=== PATIENT | female | born 1965 ===

== ENCOUNTER 2016-09-01 15:52 | Emergency (ER) | payer MEDICAID ==
[2016-09-01 16:03] VITALS: BMI 38.9
--- NOTE | 2016-09-01 16:41 | ED PDOC ---
Hyperglycemia/Hypoglycemia Time Seen by Provider: 09/01/16 15:57 Chief Complaint (Nursing): High Blood Sugar Chief Complaint (Provider): Hyperglycemia, Dizziness History Per: Patient History/Exam Limitations: other (confusion) Onset/Duration Of Symptoms: Days (2 days ago) Current Symptoms Are (Timing): Still Present Severity: Moderate Current Diabetic Medications: Insulin Causative (Exacerbating) Factor(s): Missed Taking Medication Associated Infectious Symptoms: Other (altered mental status, confusion) : The patient does not have any of the infectious symptoms listed except for those marked. Treatment Prior To Provider Evaluation: Other (10 units of humalog) Response To Treatment: Good Response Additional History Per: EMS Additional Complaint(s): Samira Dao is a 50 year old female, with a past medical history of type I diabetes mellitus and hypertension, who presents to the emergency department via [facility] medics transport for the evaluation of hyperglycemia, inclusive of dizziness, that the patient has been experiencing for the past 2 days. [facility] reportedly gave the patient 10 units of Humalog since she had missed her Insulin medication for 2 days. Patient is in a state of confusion and appears mildly altered. HPI/ROS are limited due to patient's state of confusion. PMD: Ivana Valverde Past Medical History Reviewed: Historical Data, Nursing Documentation, Vital Signs Vital Signs: Last Vital Signs Temp 98.2 F 09/01/16 16:25 Pulse 73 09/01/16 16:25 Resp 18 09/01/16 16:25 BP 176/91 H 09/01/16 16:25 Pulse Ox 99 09/01/16 16:25 - Medical History PMH: Arthritis, CVA, Diabetes (type I), HTN - Surgical History Surgical History: (x4) Other surgeries: Tubal Ligation (11 years ago) - Family History Family History: States: No Known Family Hx - Social History Alcohol: None Drugs: Denies - Home Medications Home Medications: Ambulatory Orders Medication Instructions Recorded Aspirin/Dipyridamole [Aggrenox 25 1 tab PO BID 03/27/14 mg-200 mg] Ergocalciferol (Vitamin D2) 50,000 unit PO QWK 03/27/14 [Vitamin D] Hydroxychloroquine Sulfate 200 mg PO BID 03/27/14 [Plaquenil] Insulin Glargine, Recombinan 40 unit SC HS 03/27/14 [Lantus] Insulin Lispro, Recombinant 10 unit SC TID 03/27/14 [Humalog] Lisinopril/Hydrochlorothiazide 1 tab PO DAILY 03/27/14 [Lisinopril-Hydrochlorothiazide 25 mg-20 mg] Meloxicam [Mobic] 15 mg PO DAILY 03/27/14 Oxybutynin XL [Ditropan XL] 10 mg PO DAILY 03/27/14 Pravastatin Sodium [Pravachol] 20 mg PO DAILY 03/27/14 amLODIPine [Norvasc] 10 mg PO DAILY 03/27/14 Acetaminophen [Tylenol] 650 mg PO Q4 #30 tab 09/14/14 Bacitracin OINT 1 applic TP DAILY #1 tube 04/13/16 Ibuprofen [Motrin Tab] 600 mg PO Q6 #30 tab 04/13/16 - Allergies Allergies/Adverse Reactions: Allergies Allergy/AdvReac Type Severity Reaction Status Date / Time No Known Allergies Allergy Unverified 01/28/14 17:46 Review of Systems Review Of Systems: ROS cannot be obtained secondary to pt's inabilty to answer questions. (ROS is limited due to patient's altered state of confusion) Neurological: Positive for: Confusion, Altered Mental Status, Dizziness Physical Exam - Reviewed Nursing Documentation Reviewed: Yes Vital Signs Reviewed: Yes - Physical Exam Appears: Positive for: No Acute Distress (mildly dehydrated appearing, smells of urine) Head Exam: Positive for: ATRAUMATIC, NORMOCEPHALIC Skin: Positive for: Normal Color, Warm, Dry Eye Exam: Positive for: Normal appearance, EOMI, PERRL Cardiovascular/Chest: Positive for: Regular Rate, Rhythm. Negative for: Murmur Respiratory: Positive for: Normal Breath Sounds. Negative for: Respiratory Distress Gastrointestinal/Abdominal: Positive for: Normal Exam, Soft. Negative for: Tenderness Back: Positive for: Normal Inspection. Negative for: L CVA Tenderness, R CVA Tenderness Extremity: Positive for: Normal ROM, Other (5/5 equal strength b/l). Negative for: Tenderness Neurologic/Psych: Positive for: Alert, Oriented (x2 to person and place). Negative for: Facial Droop - Laboratory Results Result Diagrams: 09/01/16 16:50 09/01/16 16:50 - ECG ECG Rhythm: Positive for: Sinus Rhythm. Negative for: ST/T Changes, Nonspecific Changes Rate: 68 O2 Sat by Pulse Oximetry: 99 (RA) Pulse Ox Interpretation: Normal Medical Decision Making Medical Decision Makin:57 Initial Impression: Hyperglycemia, altered mental status Initial Plan: * CT Head w/o Contrast * EKG * Alcohol Serum * CBC * CMP * Troponin I * Total Creatinine Kinase * Urine Drug Screen * Urinalysis * Glucose, Blood, POC * Reevaluation 16:35 EKG read a rate of 68 with Normal Sinus Rhythm and Non-Specific ST/T Changes. chem reviewed mild hyperglycemia pending UA Scribe Attestation: Documented by Robert Braun, acting as a scribe for Prieto Goode III, MD. Provider Scribe Attestation: All medical record entries made by the Scribe were at my direction and personally dictated by me. I have reviewed the chart and agree that the record accurately reflects my personal performance of the history, physical exam, medical decision making, and the department course for this patient. I have also personally directed, reviewed, and agree with the discharge instructions and disposition. Disposition - Clinical Impression Clinical Impression: Hyperglycemia - Patient ED Disposition Is Patient to be Admitted: Transfer of Care - Disposition Referrals: Ivana Valverde MD [Family Provider] - Disposition: Transfer of Care Disposition Time: 19:00 Condition: FAIR Patient Signed Over To: Harinder Evans Handoff Comments: pending UA and dispo
--- NOTE | 2016-09-01 16:49 | ED PDOC ---
Hyperglycemia/Hypoglycemia Time Seen by Provider: 09/01/16 15:57 Chief Complaint (Nursing): High Blood Sugar : The patient does not have any of the infectious symptoms listed except for those marked. Past Medical History Vital Signs: Last Vital Signs Temp 98.2 F 09/01/16 16:25 Pulse 73 09/01/16 16:25 Resp 18 09/01/16 16:25 BP 176/91 H 09/01/16 16:25 Pulse Ox 99 09/01/16 16:25 - Medical History PMH: Arthritis, Diabetes, HTN - Surgical History Surgical History: (x 4) - Family History Family History: States: Unknown Family Hx - Home Medications Home Medications: Ambulatory Orders Medication Instructions Recorded Aspirin/Dipyridamole [Aggrenox 25 1 tab PO BID 03/27/14 mg-200 mg] Ergocalciferol (Vitamin D2) 50,000 unit PO QWK 03/27/14 [Vitamin D] Hydroxychloroquine Sulfate 200 mg PO BID 03/27/14 [Plaquenil] Insulin Glargine, Recombinan 40 unit SC HS 03/27/14 [Lantus] Insulin Lispro, Recombinant 10 unit SC TID 03/27/14 [Humalog] Lisinopril/Hydrochlorothiazide 1 tab PO DAILY 03/27/14 [Lisinopril-Hydrochlorothiazide 25 mg-20 mg] Meloxicam [Mobic] 15 mg PO DAILY 03/27/14 Oxybutynin XL [Ditropan XL] 10 mg PO DAILY 03/27/14 Pravastatin Sodium [Pravachol] 20 mg PO DAILY 03/27/14 amLODIPine [Norvasc] 10 mg PO DAILY 03/27/14 Acetaminophen [Tylenol] 650 mg PO Q4 #30 tab 09/14/14 Bacitracin OINT 1 applic TP DAILY #1 tube 04/13/16 Ibuprofen [Motrin Tab] 600 mg PO Q6 #30 tab 04/13/16 - Allergies Allergies/Adverse Reactions: Allergies Allergy/AdvReac Type Severity Reaction Status Date / Time No Known Allergies Allergy Unverified 01/28/14 17:46 - ECG O2 Sat by Pulse Oximetry: 99 Disposition - Disposition Referrals: Ivana Valverde MD [Primary Care Provider] -
[2016-09-01 16:57] LABS: BASO # 0.1 K/uL (0.0-0.2); BASO % 1.2 % (0.0-2.0); EOS # 0.4 K/uL (0.0-0.7); EOS % 3.9 % (0.0-4.0); HEMATOCRIT 41.3 % (34.0-47.0); LYMPH # 3.5 K/uL (1.0-4.3); LYMPH % 31.4 % (20.0-40.0); MEAN CELL VOLUME 85.4 fl (81.0-99.0); MEAN CORPUSCULAR HGB CONC 32.8 g/dL (33.0-37.0); MEAN PLATELET VOLUME 10.1 fl (7.2-11.7); MONO # 0.6 K/uL (0.0-0.8); MONO % 5.5 % (0.0-10.0); NEUT # 6.5 K/uL (1.8-7.0); RED CELL DISTRIBUTION WIDTH 14.4 % (11.5-14.5); WHITE BLOOD COUNT 11.2 K/uL (4.8-10.8)
[2016-09-01 17:15] VITALS: BP 176/91; PULSE 68; RESP 18; TEMP 98.2; O2SAT 99
[2016-09-01 17:16] LABS: ALCOHOL SERUM < 10 mg/dl (0-10); ALKALINE PHOSPHATASE 105 U/L (38-126); ALT/SGPT 19 U/L (9-52); AST/SGOT 18 U/L (14-36); BILIRUBIN,TOTAL 0.3 mg/dl (0.2-1.3); BLOOD UREA NITROGEN 37 mg/dl (7-17); CARBON DIOXIDE 28 mmol/L (22-30); CHLORIDE 95 mmol/L (98-107); GFR AFRICAN-AMERICAN 49; GLUCOSE,RANDOM 262 mg/dL (65-105); POTASSIUM 3.6 MMOL/L (3.6-5.0); SODIUM 136 mmol/l (132-148); TOTAL PROTEIN 8.7 G/DL (6.3-8.2)
[2016-09-01] MEDS ORDERED: Sodium Chloride 0.9% 1,000 ML IV STA (18:06)
--- NOTE | 2016-09-01 18:12 | CT ---
PROCEDURE: CT HEAD WITHOUT CONTRAST. HISTORY: AMS COMPARISON: 04/12/2016 TECHNIQUE: Axial computed tomography images were obtained through the head/brain without intravenous contrast. Radiation dose: Total exam DLP = mGy-cm. This CT exam was performed using one or more of the following dose reduction techniques: Automated exposure control, adjustment of the mA and/or kV according to patient size, and/or use of iterative reconstruction technique. FINDINGS: HEMORRHAGE: No intracranial hemorrhage. BRAIN: No mass effect or edema. No significant change in multifocal chronic infarcts. VENTRICLES: Unremarkable. No hydrocephalus. CALVARIUM: Unremarkable. PARANASAL SINUSES: Unremarkable as visualized. No significant inflammatory changes. MASTOID AIR CELLS: Unremarkable as visualized. No inflammatory changes. OTHER FINDINGS: None. IMPRESSION: No acute hemorrhage.
--- NOTE | 2016-09-01 20:16 | ED PDOC ---
- Laboratory Results Result Diagrams: 09/01/16 16:50 09/01/16 16:50 - ECG O2 Sat by Pulse Oximetry: 99 (RA) Pulse Ox Interpretation: Normal Medical Decision Making Medical Decision Makin:00 Patient transferred over to provider from Dr. Goode. Pending labs and reevaluation. 21:15 Repeat accucheck is 192. Urine Dip is normal with an exception of glycosuria. 21:20 Upon provider reevaluation, patient's condition has improved, is medically stable, and requires no further treatment in the emergency department at this time. Patient will be discharged home without need for a prescription. Counseling was provided and all questions were answered regarding diagnosis and need for follow up with Ivana Valverde MD in 1-2 days. Patient is in agreement with provider's discharge plan and was prompted to return if their symptoms persist or worsen. Clinical Impression: Hyperglycemia Scribe Attestation: Documented by Robert Braun, acting as a scribe for Harinder Evans MD. Provider Scribe Attestation: All medical record entries made by the Scribe were at my direction and personally dictated by me. I have reviewed the chart and agree that the record accurately reflects my personal performance of the history, physical exam, medical decision making, and the department course for this patient. I have also personally directed, reviewed, and agree with the discharge instructions and disposition. Disposition - Clinical Impression Clinical Impression: Hyperglycemia - POA Present On Arrival: None - Disposition Referrals: Ivana Valverde MD [Family Provider] - Disposition: Routine/Home Disposition Time: 21:20 Condition: IMPROVED Instructions: Diabetic Hyperglycemia (ED)
[2016-09-02 01:41] LABS: RBC URINE 3 /hpf (0-3); URINE BACTERIA MOD (<OCC); URINE BILIRUBIN NEGATIVE (NEGATIVE); URINE BLOOD NEGATIVE (NEGATIVE); URINE COLOR YELLOW (YELLOW); URINE GLUCOSE (UA) >=500 mg/dL (Normal); URINE KETONE NEGATIVE (NEGATIVE); URINE LEUKOCYTE ESTERASE SMALL Leu/uL (Negative); URINE PROTEIN 100 mg/dL (NEGATIVE); URINE UROBILINOGEN 0.2-1.0 mg/dL (0.2-1.0); WBC URINE 19 /hpf (0-5)
--- NOTE | 2016-09-02 13:28 | CARD ---
APPROVED REPORT EKG Measurement Heart [id number] <Conclusion> Normal sinus rhythm Minimal voltage criteria for LVH, may be normal variant Borderline ECG
== END 2016-09-01 21:11 | disposition home or self-care (01) ==
LOC: H.ER 15:52
DX: E11.65 Type 2 diabetes mellitus with hyperglycemia (principal); R41.82 Altered mental status, unspecified; I10 Essential (primary) hypertension; Z79.4 Long term (current) use of insulin; Z79.82 Long term (current) use of aspirin; Z86.73 Personal history of transient ischemic attack (TIA), and cerebral infarction without residual deficits

== ENCOUNTER 2016-10-04 12:34 | Inpatient (IN) | payer MEDICAID ==
[2016-10-04 12:34] VITALS: BMI 38.9
[2016-10-04] MEDS ORDERED: Sodium Chloride 0.9% 1,000 ML IV STA ×2 (13:49→14:56)
[2016-10-04] MEDS ORDERED: Insulin Regular 100 units/ml IVP STA (13:50)
[2016-10-04 14:21] LABS: BASO # 0.1 K/uL (0.0-0.2); BASO % 1.1 % (0.0-2.0); EOS # 0.4 K/uL (0.0-0.7); EOS % 3.7 % (0.0-4.0); LYMPH # 2.2 K/uL (1.0-4.3); LYMPH % 23.1 % (20.0-40.0); MEAN CELL VOLUME 86.1 fl (81.0-99.0); MEAN CORPUSCULAR HGB CONC 32.5 g/dL (33.0-37.0); MONO # 0.6 K/uL (0.0-0.8); MONO % 6.2 % (0.0-10.0); NEUT # 6.4 K/uL (1.8-7.0); NEUT % 65.9 % (50.0-75.0); NRBC % 0.1 % (0.0-0.0); RED CELL DISTRIBUTION WIDTH 14.1 % (11.5-14.5); WHITE BLOOD COUNT 9.7 K/uL (4.8-10.8)
--- NOTE | 2016-10-04 14:29 | ED PDOC ---
Syncope/Near Syncope/Dizziness Time Seen by Provider: 10/04/16 13:30 Chief Complaint (Nursing): Dizziness/Lightheaded Chief Complaint (Provider): Lightheadedness History Per: Patient History/Exam Limitations: no limitations Onset/Duration Of Symptoms: Hrs (since 12:30 pm) Current Symptoms Are (Timing): Still Present Additional Complaint(s): 50 y/o female with a past medical history of diabetes who presents to the emergency department with a complaint of feeling "lightheadedness" and fell down around 12:30 pm today, prior to arrival. Reports she takes insulin every night. Admits she did not eat today. Denies headache, head injury, pain, shortness of breath, polyuria, polydipsia, loss of consciousness, nausea, vomiting, fever, or abdominal pain, LOC, incontinence. NIHSS Stroke Scale - Date/Time Evaluation Performed Date Performed: 10/04/16 - How Severe is the Stroke Level of Consciousness: 0=Alert LOC to Questions: 0=Both comments correct LOC to commands: 0=Obeys both correctly Best Gaze: 0=Normal Visual: 0=No visual loss Facial: 0=Normal Motor Arm - Left: 0=No drift Motor Arm - Right: 0=No drift Motor Leg - Left: 0=No drift Motor Leg - Right: 0=No drift Limb Ataxia: 0=Absent Sensory: 0=Normal Best Language: 0=No aphasia Dysarthia: 0=Normal articulation Extinction & Inattention (Neglect): 0=Normal, no object Score: 0 Past Medical History Reviewed: Historical Data, Nursing Documentation, Vital Signs Vital Signs: Last Vital Signs Temp 98.9 F 10/04/16 12:35 Pulse 86 10/04/16 12:35 Resp 18 10/04/16 12:35 BP 135/76 10/04/16 12:35 Pulse Ox 96 10/04/16 12:35 - Medical History PMH: Arthritis, CVA, Diabetes (type I), HTN - Surgical History Surgical History: (x4) - Family History Family History: States: Unknown Family Hx - Home Medications Home Medications: Ambulatory Orders Medication Instructions Recorded Aspirin/Dipyridamole [Aggrenox 1 cap PO BID 10/04/16 25-200 mg] Insulin Glargine, Recombina 40 unit SC HS 10/04/16 [Lantus] Insulin Lispro [humALOG] 10 unit SC TID 10/04/16 Lisinopril/Hydrochlorothiazide 1 tab PO DAILY 10/04/16 [Lisinopril-Hctz 20-25 mg Tab] PARoxetine [Paxil] 20 mg PO QAM 10/04/16 Pravastatin Sodium [Pravachol] 20 mg PO DAILY 10/04/16 amLODIPine [Norvasc] 10 mg PO DAILY 10/04/16 metFORMIN [glucOPHAGE] 850 mg PO BID 10/04/16 - Allergies Allergies/Adverse Reactions: Allergies Allergy/AdvReac Type Severity Reaction Status Date / Time No Known Allergies Allergy Unverified 01/28/14 17:46 Review of Systems ROS Statement: Except As Marked, All Systems Reviewed And Found Negative Constitutional: Negative for: Fever, Other (loss of consciousness) Respiratory: Negative for: Shortness of Breath Gastrointestinal: Negative for: Nausea, Vomiting, Abdominal Pain Genitourinary Female: Negative for: Other (Polyuria or polydipsia) Neurological: Positive for: Other (Lightheadedness). Negative for: Headache ( NO head injury) Physical Exam - Reviewed Nursing Documentation Reviewed: Yes Vital Signs Reviewed: Yes - Physical Exam Appears: Positive for: Well, Non-toxic, No Acute Distress Head Exam: Positive for: ATRAUMATIC, NORMAL INSPECTION, NORMOCEPHALIC Skin: Positive for: Normal Color, Warm, Dry ENT: Positive for: Normal ENT Inspection. Negative for: Pharyngeal Erythema Neck: Positive for: Normal, Supple Cardiovascular/Chest: Positive for: Regular Rate, Rhythm. Negative for: Murmur Respiratory: Positive for: Normal Breath Sounds. Negative for: Accessory Muscle Use, Respiratory Distress Gastrointestinal/Abdominal: Positive for: Normal Exam, Soft. Negative for: Tenderness Extremity: Positive for: Normal ROM. Negative for: Pedal Edema Neurologic/Psych: Positive for: Alert, Oriented, Gait (steady), Other (negative Romberg sign; equal general surgeon strenght b/l). Negative for: Aphasia, Facial Droop - Laboratory Results Result Diagrams: 10/04/16 14:12 10/04/16 14:12 - ECG ECG: Positive for: Interpreted By Me ECG Rhythm: Positive for: Sinus Rhythm. Negative for: ST/T Changes O2 Sat by Pulse Oximetry: 96 (RA) Pulse Ox Interpretation: Normal - Progress ED Course And Treament: Repeat FSBS: 294. CT head w/o contrast: nothing acute Upon further questioning pt. states she has not taken her insulin in >2 weeks as she has depleted her supply of needles. Urine culture ordered. Rocephin 1gm IV given. Case d/w Dr. Newsome who states anion gap is 14 and pt. has no ketones in her urine therefore DKA is r/o. Case d/w Dr. Davey, covering for Dr. Schmitz, and arrangements made for 23 hr observation. Medical Decision Making Medical Decision Making: Time: 13:30 Initial impression: Lightheadedness Initial plan: --Head w/o contrast CT --Electrocardiogram STAT --COMP Metabolic Panel --Troponin I STAT --EKG-ED (EDNURTX) --CBC w/ differential --Insulin Human Regular 8 Units IVP --Sodium Chloride 1,000 ml IV 1,000 mls/hr --Band Saw Operator Cake Cutting CONT --IV Insertion --Urinalysis STAT --Reevaluation --AccuCheck: 421 --Case discussed with Dr. Newsome who states patient does not require COLD STROKE as there are no focal deficits. Time: 16:23 --Head CT FINDINGS: HEMORRHAGE: No intracranial hemorrhage. BRAIN: Diffuse atrophy with prominence of the ventricles and sulci noted. No mass effect or edema. Dense intracranial atherosclerotic calcifications. Moderate scattered periventricular and subcortical white matter hypodensities, which are nonspecific, but often seen with chronic microvascular ischemic disease. Encephalomalacia is re-identified within the left cerebellum and right basal ganglia similar prior study. Evidence of bilateral Ishmael lacunar infarcts which also appear grossly similar to prior study. VENTRICLES: No hydrocephalus. Ex vacuo dilatation of the frontal horn right lateral ventricle. CALVARIUM: Unremarkable. PARANASAL SINUSES: Unremarkable as visualized. No significant inflammatory changes. MASTOID AIR CELLS: Unremarkable as visualized. No inflammatory changes. OTHER FINDINGS: None. IMPRESSION: Moderate nonspecific white matter changes as above. Similar appearance of multifocal chronic infarcts. Please note that MRI with diffusion imaging is more sensitive in the detection of acute ischemic event. Scribe Attestation: Documented by Eloisa Lin, acting as a scribe for Flo Myles PA-C. Provider Scribe Attestation: All medical record entries made by the Scribe were at my direction and personally dictated by me. I have reviewed the chart and agree that the record accurately reflects my personal performance of the history, physical exam, medical decision making, and the department course for this patient. I have also personally directed, reviewed, and agree with the discharge instructions and disposition. Disposition - Clinical Impression Clinical Impression: Dizziness, Hyperglycemia - Patient ED Disposition Is Patient to be Admitted: Yes - Disposition Disposition: Routine/Home Disposition Time: 17:41 Condition: IMPROVED
[2016-10-04 14:35] LABS: ALKALINE PHOSPHATASE 102 U/L (38-126); ALT/SGPT 35 U/L (9-52); AST/SGOT 15 U/L (14-36); BILIRUBIN,TOTAL 0.3 mg/dl (0.2-1.3); BLOOD UREA NITROGEN 29 mg/dl (7-17); CALCIUM 9.4 mg/dL (8.4-10.2); CARBON DIOXIDE 26 mmol/L (22-30); CHLORIDE 94 mmol/L (98-107); GFR AFRICAN-AMERICAN 45; POTASSIUM 3.9 MMOL/L (3.6-5.0); SODIUM 134 mmol/l (132-148); TOTAL PROTEIN 8.6 G/DL (6.3-8.2)
[2016-10-04 14:36] LABS: RBC URINE 18 /hpf (0-3); URINE BACTERIA OCC (<OCC); URINE BILIRUBIN NEGATIVE (NEGATIVE); URINE BLOOD SMALL (NEGATIVE); URINE COLOR YELLOW (YELLOW); URINE GLUCOSE (UA) >=500 mg/dL (Normal); URINE KETONE NEGATIVE (NEGATIVE); URINE LEUKOCYTE ESTERASE LARGE Leu/uL (Negative); URINE PROTEIN 100 mg/dL (NEGATIVE); URINE UROBILINOGEN 0.2-1.0 mg/dL (0.2-1.0); WBC CLUMPS MANY /hpf; WBC URINE 180 /hpf (0-5)
[2016-10-04 14:53] LABS: GLUCOSE,RANDOM 486 mg/dL (65-105)
--- NOTE | 2016-10-04 16:24 | CT ---
PROCEDURE: CT HEAD WITHOUT CONTRAST. HISTORY: dizziness COMPARISON: Noncontrast head CT performed 09/01/16 TECHNIQUE: Axial computed tomography images were obtained through the head/brain without intravenous contrast. Radiation dose: Total exam DLP = 820.96 mGy-cm. This CT exam was performed using one or more of the following dose reduction techniques: Automated exposure control, adjustment of the mA and/or kV according to patient size, and/or use of iterative reconstruction technique. FINDINGS: HEMORRHAGE: No intracranial hemorrhage. BRAIN: Diffuse atrophy with prominence of the ventricles and sulci noted. No mass effect or edema. Dense intracranial atherosclerotic calcifications. Moderate scattered periventricular and subcortical white matter hypodensities, which are nonspecific, but often seen with chronic microvascular ischemic disease. Encephalomalacia is re-identified within the left cerebellum and right basal ganglia similar prior study. Evidence of bilateral Ishmael lacunar infarcts which also appear grossly similar to prior study. VENTRICLES: No hydrocephalus. Ex vacuo dilatation of the frontal horn right lateral ventricle. CALVARIUM: Unremarkable. PARANASAL SINUSES: Unremarkable as visualized. No significant inflammatory changes. MASTOID AIR CELLS: Unremarkable as visualized. No inflammatory changes. OTHER FINDINGS: None. IMPRESSION: Moderate nonspecific white matter changes as above. Similar appearance of multifocal chronic infarcts. Please note that MRI with diffusion imaging is more sensitive in the detection of acute ischemic event.
[2016-10-04] MEDS: Insulin Detemir 100 Units/ml Inj SC SCH (22:31)
[2016-10-05 07:19] LABS: MEAN CELL VOLUME 84.8 fl (81.0-99.0); MEAN CORPUSCULAR HEMOGLOBIN 28.2 pg (27.0-31.0); MEAN CORPUSCULAR HGB CONC 33.3 g/dL (33.0-37.0); RED CELL DISTRIBUTION WIDTH 13.8 % (11.5-14.5); WHITE BLOOD COUNT 9.9 K/uL (4.8-10.8)
[2016-10-05 07:20] LABS: ALB/GLOB RATIO 0.9 (1.0-2.1); BILIRUBIN,TOTAL 0.3 mg/dl (0.2-1.3); CALCIUM 8.8 mg/dL (8.4-10.2); POTASSIUM 3.5 MMOL/L (3.6-5.0); TOTAL PROTEIN 7.3 G/DL (6.3-8.2)
[2016-10-05 07:28] LABS: TROPONIN I 0.013 ng/mL (0.00-0.120)
[2016-10-05 07:46] LABS: THYROID STIMULATING HORMONE 1.95 mIU/ML (0.46-4.68)
[2016-10-05] MEDS: Aspirin-Dipyridamole 200-25 mg ER Cap PO SCH ×2 (08:46→17:10)
[2016-10-05] MEDS: Insulin Lispro (humaLOG) 100 Units/ml Inj SC SCH ×3 (08:47→17:11)
[2016-10-05] MEDS: Enoxaparin 40 mg Syringe SC SCH (08:48)
[2016-10-05] MEDS: Pravastatin Sodium 20 MG TAB PO SCH (08:49)
--- NOTE | 2016-10-05 12:01 | CP.PCM.HP ---
History of Present Illness - History of Present Illness History of Present Illness: Patient seen and examined at the bedside with attending. 50F p/w an episode of what seems to be mechanical fall. Patient describes turning quickly, becoming dizzy, reaching out to catch herself/missing the pole , and falling face forward. She denies any prodrome of palpitations or SOB, headache, or diaphoresis. She denies LOC. In the ED her glucose was found to be >400. PMD: Dr Savannah Valverde PMH: DM, Lupus, Arthritis, HTN, CVA x2 () PSH: C-sxn x4 Smoke: Quit 4yrs ago Alcohol: Denies ALL: NKDA KAY: See Med Rec Present on Admission - Present on Admission Any Indicators Present on Admission: Yes History of Uncontrolled Diabetes: Yes Review of Systems - Neurological Neurological: Dizziness Past Patient History - Infectious Disease Hx of Infectious Diseases: None - Past Medical History & Family History Past Medical History?: Yes - Past Social History Smoking Status: Never Smoked - CARDIAC Hx Cardiac Disorders: Yes Hx Hypertension: Yes - PULMONARY Hx Respiratory Disorders: No - NEUROLOGICAL Hx Neurological Disorder: Yes HX Cerebrovascular Accident: Yes () - HEENT Hx HEENT Problems: No - RENAL Hx Chronic Kidney Disease: No - ENDOCRINE/METABOLIC Hx Endocrine Disorders: Yes Hx Diabetes Mellitus Type 1: Yes - HEMATOLOGICAL/ONCOLOGICAL Hx Blood Disorders: No - INTEGUMENTARY Hx Dermatological Problems: No - MUSCULOSKELETAL/RHEUMATOLOGICAL Hx Musculoskeletal Disorders: Yes Hx Arthritis: Yes Hx Falls: No - GASTROINTESTINAL Hx Gastrointestinal Disorders: No - GENITOURINARY/GYNECOLOGICAL Hx Genitourinary Disorders: No - PSYCHIATRIC Hx Psychophysiologic Disorder: No Hx Substance Use: No - SURGICAL HISTORY Hx Surgeries: Yes Hx Section: Yes Hx Tubal Ligation: Yes (11 years ago) - ANESTHESIA Hx Anesthesia: Yes Hx Anesthesia Reactions: No Hx Malignant Hyperthermia: No Has any member of the family had a problem w/ anesthesia?: No Meds Allergies/Adverse Reactions: Allergies Allergy/AdvReac Type Severity Reaction Status Date / Time No Known Allergies Allergy Unverified 01/28/14 17:46 Physical Exam - Constitutional Appears: Well, Non-toxic, No Acute Distress - Head Exam Head Exam: ATRAUMATIC, NORMAL INSPECTION - Eye Exam Eye Exam: EOMI, PERRL - ENT Exam ENT Exam: Mucous Membranes Moist, Normal Exam - Neck Exam Neck exam: Positive for: Full Rom, Normal Inspection - Respiratory Exam Respiratory Exam: Clear to Auscultation Bilateral, NORMAL BREATHING PATTERN. absent: Rales, Wheezes - Cardiovascular Exam Cardiovascular Exam: REGULAR RHYTHM. absent: JVD - GI/Abdominal Exam GI & Abdominal Exam: Normal Bowel Sounds, Soft. absent: Tenderness - Extremities Exam Extremities exam: Positive for: normal capillary refill, pedal pulses present. Negative for: pedal edema - Neurological Exam Neurological exam: Alert, CN II-XII Intact, Oriented x3 - Psychiatric Exam Psychiatric exam: Normal Affect, Normal Mood - Skin Skin Exam: Normal Color, Warm Results - Vital Signs Recent Vital Signs: Last Vital Signs Temp 36.8 C 10/05/16 08:00 Pulse 73 10/05/16 08:49 Resp 18 10/05/16 08:00 BP 120/79 10/05/16 08:49 Pulse Ox 93 L 10/05/16 08:00 - Labs Result Diagrams: 10/06/16 07:15 10/06/16 07:15 Labs: Laboratory Results - last 24 hr 10/04/16 10/05/16 10/05/16 21:05 05:25 06:15 WBC 9.9 RBC 4.36 Hgb 12.3 Hct 37.0 MCV 84.8 MCH 28.2 MCHC 33.3 RDW 13.8 Plt Count 239 Sodium Potassium Chloride Carbon Dioxide Anion Gap BUN Creatinine Est GFR ( Amer) Est GFR (Non-Af Amer) POC Glucose (mg/dL) 226 H 204 H Random Glucose Calcium Total Bilirubin AST ALT Alkaline Phosphatase Troponin I Total Protein Albumin Globulin Albumin/Globulin Ratio Vitamin B12 TSH 3rd Generation 10/05/16 10/05/16 06:15 11:23 WBC RBC Hgb Hct MCV MCH MCHC RDW Plt Count Sodium 139 Potassium 3.5 L Chloride 102 Carbon Dioxide 27 Anion Gap 14 BUN 20 H Creatinine 1.2 Est GFR ( Amer) 58 Est GFR (Non-Af Amer) 48 POC Glucose (mg/dL) 303 H Random Glucose 192 H Calcium 8.8 Total Bilirubin 0.3 AST 14 ALT 29 Alkaline Phosphatase 83 Troponin I 0.0130 Total Protein 7.3 Albumin 3.5 Globulin 3.8 Albumin/Globulin Ratio 0.9 L Vitamin B12 393 TSH 3rd Generation 1.95 Assessment & Plan (1) Fall Assessment and Plan: Appears to be a mechanical fall, however given positive UA and hyperglycemia this may have contributed to the balance issue. CT head chronic infarcts identified but recommendation to f/u with MRI. - Neurology Consult(Dr Espinoza): MRI of brain - Start antibiotics - MRI pending Status: Acute (2) DVT prophylaxis Assessment and Plan: Lovenox 40mg, SC, Daily Status: Acute (3) UTI (urinary tract infection) Assessment and Plan: - Started PO Macrobid Status: Acute (4) History of CVA (cerebrovascular accident) without residual deficits Assessment and Plan: No residual symptoms. - c/w Aggrenox Q12H Status: Chronic (5) Lupus Assessment and Plan: Chronic, and not on medication. Work-up was elsewhere - Send labs Status: Chronic (6) Hypertension Assessment and Plan: Stable, c/w home medications Status: Acute (7) Diabetes Assessment and Plan: Poorly controlled - Accu-checks ACHS - c/w home medications - Statin - Hypoglycemic Bundle - SSI - Levemir Status: Chronic
--- NOTE | 2016-10-05 15:55 | CP.PCM.CON ---
History of Present Illness - History of Present Illness History of Present Illness: Ms. Dao is a 50-year-old woman with a past medical history of uncontrolled diabetes who states that she felt light headed yesterday and went to hold on to a table for support, but missed the table and fell. She was brought to the ED, where her initial serum glucose was 486 mg/dL. Neurology was consulted to assist with the management and care. Today, the patient states that she does not feel dizzy and denied headache, visual changes, sensory changes, weakness, chest pain, SOB, difficulty with ambulation, abdominal pain, diarrhea or urinary symptoms. She did not have any new complaints. Review of Systems - Review of Systems All systems: reviewed and no additional remarkable complaints except Past Patient History - Infectious Disease Hx of Infectious Diseases: None - Past Medical History & Family History Past Medical History?: Yes - Past Social History Smoking Status: Never Smoked - CARDIAC Hx Cardiac Disorders: Yes Hx Hypertension: Yes - PULMONARY Hx Respiratory Disorders: No - NEUROLOGICAL Hx Neurological Disorder: Yes HX Cerebrovascular Accident: Yes (2006,2007) - HEENT Hx HEENT Problems: No - RENAL Hx Chronic Kidney Disease: No - ENDOCRINE/METABOLIC Hx Endocrine Disorders: Yes Hx Diabetes Mellitus Type 1: Yes - HEMATOLOGICAL/ONCOLOGICAL Hx Blood Disorders: No - INTEGUMENTARY Hx Dermatological Problems: No - MUSCULOSKELETAL/RHEUMATOLOGICAL Hx Musculoskeletal Disorders: Yes Hx Arthritis: Yes Hx Falls: No - GASTROINTESTINAL Hx Gastrointestinal Disorders: No - GENITOURINARY/GYNECOLOGICAL Hx Genitourinary Disorders: No - PSYCHIATRIC Hx Psychophysiologic Disorder: No Hx Substance Use: No - SURGICAL HISTORY Hx Surgeries: Yes Hx Section: Yes Hx Tubal Ligation: Yes (11 years ago) - ANESTHESIA Hx Anesthesia: Yes Hx Anesthesia Reactions: No Hx Malignant Hyperthermia: No Has any member of the family had a problem w/ anesthesia?: No Meds Allergies/Adverse Reactions: Allergies Allergy/AdvReac Type Severity Reaction Status Date / Time No Known Allergies Allergy Unverified 01/28/14 17:46 - Medications Medications: Current Medications Amlodipine Besylate (Norvasc) 10 mg PO DAILY [facility] Last Admin: 10/05/16 08:49 Dose: 10 mg Dipyridamole/Aspirin (Aggrenox 25-200 Mg) 1 ea PO BID [facility] Last Admin: 10/05/16 08:46 Dose: 1 ea Enoxaparin Sodium (Lovenox) 40 mg SC DAILY [facility] PRN Reason: Protocol Last Admin: 10/05/16 08:48 Dose: 40 mg Hydrochlorothiazide (Hydrodiuril) 25 mg PO DAILY [facility] Last Admin: 10/05/16 08:49 Dose: 25 mg Insulin Detemir (Levemir) 40 units SC HS [facility] Last Admin: 10/04/16 22:31 Dose: 40 units Insulin Human Lispro (Humalog) 10 units SC TID [facility] Last Admin: 10/05/16 13:12 Dose: 10 u Lisinopril (Zestril) 20 mg PO DAILY [facility] Last Admin: 10/05/16 08:49 Dose: 20 mg Metformin HCl (Glucophage) 850 mg PO BID [facility] Last Admin: 10/05/16 08:47 Dose: 850 mg Paroxetine HCl (Paxil) 20 mg PO QAM [facility] Last Admin: 10/05/16 08:49 Dose: 20 mg Pravastatin Sodium (Pravachol) 20 mg PO DAILY [facility] Last Admin: 10/05/16 08:49 Dose: 20 mg Physical Exam - Constitutional Appears: Well - Head Exam Head Exam: ATRAUMATIC, NORMAL INSPECTION, NORMOCEPHALIC - Eye Exam Eye Exam: EOMI, Normal appearance, PERRL - ENT Exam ENT Exam: Mucous Membranes Moist, Normal Exam - Respiratory Exam Respiratory Exam: Clear to Auscultation Bilateral, NORMAL BREATHING PATTERN - Cardiovascular Exam Cardiovascular Exam: REGULAR RHYTHM, +S1, +S2 - GI/Abdominal Exam GI & Abdominal Exam: Normal Bowel Sounds, Soft. absent: Tenderness - Rectal Exam Rectal Exam: Deferred - Extremities Exam Extremities exam: Positive for: normal inspection - Back Exam Back exam: NORMAL INSPECTION - Neurological Exam Neurological exam: Alert, CN II-XII Intact, Normal Gait, Oriented x3, Reflexes Normal - Expanded Neurological Exam Expanded Patient oriented to: person, place, time Cranial nerves: EOM's Intact: Normal, Facial Sensation: Normal, Gag Reflex: Normal, Nystagmus: Normal Ataxia: No Cerebellar Function: Finger to Nose: Normal Upper motor neuron: Babinski Sign: Normal Sensory exam: Lower Extremity Light Touch: Normal, Lower Extremity Pin Prick: Normal, Upper Extremity Light Touch: Normal, Upper Extremity Pin Prick: Normal Neuro motor strength exam: Left Upper Extremity: 5, Right Upper Extremity: 5, Left Lower Extremity: 5, Right Lower Extremity: 5 DTR: Achilles Tendon Left: 2+, Achilles Tendon Right: 2+, Bicep Left: 2+, Bicep Right: 2+, Brachioradialis Left: 2+, Brachioradialis Right: 2+, Patellar Left: 2 +, Patellar Right: 2+, Tricep Left: 2+, Tricep Right: 2+ - Psychiatric Exam Psychiatric exam: Normal Affect, Normal Mood - Skin Skin Exam: Dry, Intact, Normal Color, Warm Results - Vital Signs Recent Vital Signs: Last Vital Signs Temp 98.5 F 10/05/16 12:39 Pulse 82 10/05/16 12:39 Resp 16 10/05/16 12:39 BP 112/74 10/05/16 12:39 Pulse Ox 96 10/05/16 12:39 - Labs Result Diagrams: 10/05/16 06:15 10/05/16 06:15 Labs: Laboratory Results - last 24 hr 10/04/16 10/05/16 10/05/16 21:05 05:25 06:15 WBC 9.9 RBC 4.36 Hgb 12.3 Hct 37.0 MCV 84.8 MCH 28.2 MCHC 33.3 RDW 13.8 Plt Count 239 Sodium Potassium Chloride Carbon Dioxide Anion Gap BUN Creatinine Est GFR ( Amer) Est GFR (Non-Af Amer) POC Glucose (mg/dL) 226 H 204 H Random Glucose Hemoglobin A1c Calcium Total Bilirubin AST ALT Alkaline Phosphatase Troponin I Total Protein Albumin Globulin Albumin/Globulin Ratio Vitamin B12 TSH 3rd Generation 10/05/16 10/05/16 10/05/16 06:15 06:15 11:23 WBC RBC Hgb Hct MCV MCH MCHC RDW Plt Count Sodium 139 Potassium 3.5 L Chloride 102 Carbon Dioxide 27 Anion Gap 14 BUN 20 H Creatinine 1.2 Est GFR ( Amer) 58 Est GFR (Non-Af Amer) 48 POC Glucose (mg/dL) 303 H Random Glucose 192 H Hemoglobin A1c 12.9 H Calcium 8.8 Total Bilirubin 0.3 AST 14 ALT 29 Alkaline Phosphatase 83 Troponin I 0.0130 Total Protein 7.3 Albumin 3.5 Globulin 3.8 Albumin/Globulin Ratio 0.9 L Vitamin B12 393 TSH 3rd Generation 1.95 - Imaging and Cardiology CT scan - head Status: Image reviewed by me, Report reviewed by me (Multifocal chronic ischemic changes. ) Assessment & Plan (1) Dizziness Assessment and Plan: Likely due to hyperglycemia; however, due to her history of uncontrolled stroke risk factors and CT head showing chronic infarcts, an MRI of the brain without contrast is recommended. Continue Aggrenox and control stroke risk factors. PT /OT eval. DVT Px. If MRI does not show a new infarct, the patient may be discharged to follow up with primary care. Status: Acute Priority: High
[2016-10-05] MEDS: Insulin Detemir 100 Units/ml Inj SC SCH (21:47)
--- NOTE | 2016-10-05 23:42 | CARD ---
APPROVED REPORT EKG Measurement Heart [id number] <Conclusion> Normal sinus rhythm Moderate voltage criteria for LVH, may be normal variant Prolonged QT Abnormal ECG
[2016-10-06 07:53] LABS: CALCIUM 8.7 mg/dL (8.4-10.2); POTASSIUM 3.7 MMOL/L (3.6-5.0)
[2016-10-06 08:11] LABS: HEMATOCRIT 36.4 % (34.0-47.0); MEAN CELL VOLUME 85.8 fl (81.0-99.0); MEAN CORPUSCULAR HEMOGLOBIN 27.7 pg (27.0-31.0); MEAN CORPUSCULAR HGB CONC 32.3 g/dL (33.0-37.0); RED CELL DISTRIBUTION WIDTH 13.9 % (11.5-14.5); WHITE BLOOD COUNT 11.4 K/uL (4.8-10.8)
[2016-10-06] MEDS: Pravastatin Sodium 20 MG TAB PO SCH (09:31)
[2016-10-06] MEDS: Aspirin-Dipyridamole 200-25 mg ER Cap PO SCH ×2 (09:31→22:18)
[2016-10-06] MEDS: Insulin Lispro (humaLOG) 100 Units/ml Inj SC SCH ×3 (09:32→16:48)
[2016-10-06] MEDS: Enoxaparin 40 mg Syringe SC SCH (09:32)
[2016-10-06] MEDS ORDERED: Aspirin-Dipyridamole 200-25 mg ER Cap PO SCH (14:00)
[2016-10-06] MEDS ORDERED: Glucagon Recombinant 1 mg Inj IM PRN (14:48)
[2016-10-06] MEDS ORDERED: Dextrose 50% SYRINGE Inj (50 ml) IV PRN (14:48)
--- NOTE | 2016-10-06 15:06 | CP.PCM.PN ---
Subjective - Date & Time of Evaluation Date of Evaluation: 10/06/16 Time of Evaluation: 07:00 - Subjective Subjective: Patient seen and examined at the bedside. 50F without acute complaints. She denies any further sensation of dizziness, SOB, chest pain, palpitations, dysuria. She is ambulating, tolerating PO with difficulty. Objective - Vital Signs/Intake and Output Vital Signs (last 24 hours): Temp Pulse Resp BP Pulse Ox 36.7 C 76 18 117/77 96 10/06/16 12:20 10/06/16 12:20 10/06/16 12:20 10/06/16 12:20 10/06/16 12:20 - Medications Medications: Current Medications Amlodipine Besylate (Norvasc) 10 mg PO DAILY [facility] Last Admin: 10/06/16 09:31 Dose: 10 mg Dextrose (Dextrose 50% Inj) 0 ml IV STAT PRN; Protocol PRN Reason: Hyglycemia Protocol Dextrose (Glutose 15) 0 gm PO ONCE PRN; Protocol PRN Reason: Hypoglycemia Protocol Dipyridamole/Aspirin (Aggrenox 25-200 Mg) 1 ea PO Q12H [facility] Enoxaparin Sodium (Lovenox) 40 mg SC DAILY [facility] PRN Reason: Protocol Last Admin: 10/06/16 09:32 Dose: 40 mg Glucagon (Glucagen Diagnostic Kit) 0 mg IM STAT PRN; Protocol PRN Reason: Hypoglycemia Protocol Hydrochlorothiazide (Hydrodiuril) 25 mg PO DAILY [facility] Last Admin: 10/06/16 09:31 Dose: 25 mg Insulin Detemir (Levemir) 40 units SC HS [facility] Last Admin: 10/05/16 21:47 Dose: 40 units Insulin Human Lispro (Humalog) 10 units SC TID [facility] Last Admin: 10/06/16 13:03 Dose: 10 u Lisinopril (Zestril) 20 mg PO DAILY [facility] Last Admin: 10/06/16 09:32 Dose: 20 mg Metformin HCl (Glucophage) 850 mg PO BID [facility] Last Admin: 10/06/16 09:31 Dose: 850 mg Nitrofurantoin Macrocrystals (Macrobid) 100 mg PO Q12 [facility] Last Admin: 10/06/16 13:04 Dose: 100 mg Paroxetine HCl (Paxil) 20 mg PO QAM [facility] Last Admin: 10/06/16 09:31 Dose: 20 mg Pravastatin Sodium (Pravachol) 20 mg PO DAILY [facility] Last Admin: 10/06/16 09:31 Dose: 20 mg - Labs Labs: 10/06/16 07:15 10/06/16 07:15 - Constitutional Appears: Well, Non-toxic, No Acute Distress - Head Exam Head Exam: ATRAUMATIC, NORMAL INSPECTION - Eye Exam Eye Exam: EOMI, PERRL - ENT Exam ENT Exam: Mucous Membranes Moist, Normal Exam - Neck Exam Neck Exam: Full ROM, Normal Inspection - Respiratory Exam Respiratory Exam: Clear to Ausculation Bilateral, NORMAL BREATHING PATTERN. absent: Rales, Wheezes - Cardiovascular Exam Cardiovascular Exam: REGULAR RHYTHM. absent: JVD - GI/Abdominal Exam GI & Abdominal Exam: Soft, Normal Bowel Sounds. absent: Tenderness - Extremities Exam Extremities Exam: Normal Capillary Refill. absent: Pedal Edema - Neurological Exam Neurological Exam: Alert, Awake, CN II-XII Intact, Oriented x3 - Psychiatric Exam Psychiatric exam: Normal Affect, Normal Mood - Skin Skin Exam: Normal Color, Warm Assessment and Plan (1) CVA (cerebral vascular accident) Assessment & Plan: MRI positive for acute infarct, Dr Espinoza notified. NIHSS- 0 at this time - Neurology Consult(Dr Espinoza): c/w Aggrenox - Minimize risk factors - OT/Neuro checks Q2H/Statin Status: Acute (2) DVT prophylaxis Assessment & Plan: Lovenox 40mg, SC, Daily Status: Acute (3) UTI (urinary tract infection) Assessment & Plan: - Started PO Macrobid Status: Acute (4) History of CVA (cerebrovascular accident) without residual deficits Assessment & Plan: No residual symptoms. - c/w Aggrenox Q12H Status: Chronic (5) Lupus Assessment & Plan: Chronic, and not on medication. Work-up was elsewhere - Sent [facility] Status: Chronic (6) Hypertension Assessment & Plan: Stable, c/w home medications Status: Acute (7) Diabetes Assessment & Plan: Poorly controlled - Accu-checks ACHS - c/w home medications - Statin - Hypoglycemic Bundle - SSI - Levemir Status: Chronic
--- NOTE | 2016-10-06 16:49 | MRI ---
PROCEDURE: MRI BRAIN WITHOUT CONTRAST HISTORY: COMPARISON: CT head without contrast from 10/04/2016. TECHNIQUE: Multiplanar, multisequence MR images of the brain were obtained without intravenous contrast enhancement. FINDINGS: HEMORRHAGE: None DWI: There are scattered small foci of restricted diffusion in the right centrum semiovale, right periatrial white matter and left medial thalamus. BRAIN PARENCHYMA: There are old hemorrhagic infarctions in bilateral basal ganglia and left thalamus. There is also an old infarction in the right posterior parietal and temporal lobe. There are punctate foci of increased magnetic susceptibility in the mario, bilateral parietal lobes and the left temporal lobe consistent with old petechial hemorrhage. There is cystic encephalomalacia and gliosis in the left posterior inferior cerebellar hemisphere. There are severe chronic microangiopathic changes. VENTRICLES: There is moderate global parenchymal volume loss with proportionate enlargement of the ventricles and cortical sulci, advanced for the patient's age. CRANIUM: There is normal bone marrow signal pattern. ORBITS: Grossly unremarkable. PARANASAL SINUSES/MASTOIDS: Predominantly clear. VASCULAR SYSTEM: There are normal signal voids in the larger intracranial arteries. OTHER FINDINGS: None. IMPRESSION: 1. Small foci of acute infarction in the right centrum semiovale and left medial thalamus. Acute infarction in the right periatrial white matter. 2. Old infarction in the right posterior parietal and temporal lobe in the MCA territory and left posterior inferior cerebellar hemisphere in the PICA territory. 3. Severe chronic microangiopathic changes and moderate age-related global parenchymal volume loss. Important findings were discussed with nurse Martinez on the floor on 10/06/2016 at 9:50 a.mild.
--- NOTE | 2016-10-06 20:29 | CP.PCM.PN ---
Subjective - Date & Time of Evaluation Date of Evaluation: 10/06/16 Time of Evaluation: 13:00 - Subjective Subjective: Ms. Dao was seen and examined today at bedside. She was found in NAD and there were no acute events overnight. I discussed the results of the MRI of the brain with her. We talked about obtaining better control of her stroke risk factors. She had no new complaints. Objective - Vital Signs/Intake and Output Vital Signs (last 24 hours): Temp Pulse Resp BP Pulse Ox 98.3 F 85 18 133/87 96 10/06/16 17:00 10/06/16 17:00 10/06/16 17:00 10/06/16 17:00 10/06/16 17:00 Intake and Output: 10/06/16 10/07/16 18:59 06:59 Intake Total 700 Balance 700 - Medications Medications: Current Medications Amlodipine Besylate (Norvasc) 10 mg PO DAILY [facility] Last Admin: 10/06/16 09:31 Dose: 10 mg Dextrose (Dextrose 50% Inj) 0 ml IV STAT PRN; Protocol PRN Reason: Hyglycemia Protocol Dextrose (Glutose 15) 0 gm PO ONCE PRN; Protocol PRN Reason: Hypoglycemia Protocol Dipyridamole/Aspirin (Aggrenox 25-200 Mg) 1 ea PO Q12 [facility] Enoxaparin Sodium (Lovenox) 40 mg SC DAILY [facility] PRN Reason: Protocol Last Admin: 10/06/16 09:32 Dose: 40 mg Glucagon (Glucagen Diagnostic Kit) 0 mg IM STAT PRN; Protocol PRN Reason: Hypoglycemia Protocol Hydrochlorothiazide (Hydrodiuril) 25 mg PO DAILY [facility] Last Admin: 10/06/16 09:31 Dose: 25 mg Insulin Detemir (Levemir) 40 units SC HS [facility] Last Admin: 10/05/16 21:47 Dose: 40 units Insulin Human Lispro (Humalog) 10 units SC TID [facility] Last Admin: 10/06/16 16:48 Dose: 10 u Lisinopril (Zestril) 20 mg PO DAILY [facility] Last Admin: 10/06/16 09:32 Dose: 20 mg Metformin HCl (Glucophage) 850 mg PO BID [facility] Last Admin: 10/06/16 16:48 Dose: 850 mg Nitrofurantoin Macrocrystals (Macrobid) 100 mg PO Q12 [facility] Last Admin: 10/06/16 13:04 Dose: 100 mg Paroxetine HCl (Paxil) 20 mg PO QAM [facility] Last Admin: 10/06/16 09:31 Dose: 20 mg Pravastatin Sodium (Pravachol) 20 mg PO DAILY [facility] Last Admin: 10/06/16 09:31 Dose: 20 mg - Labs Labs: 10/06/16 07:15 10/06/16 07:15 - Neurological Exam Neurological Exam: Abnormal Gait, CN II-XII Intact, Oriented x3 Neuro motor strength exam: Left Upper Extremity: 4, Right Upper Extremity: 4, Left Lower Extremity: 4, Right Lower Extremity: 4 Additional comments: Slow mentation Assessment and Plan (1) CVA (cerebral vascular accident) Assessment & Plan: The MRI of the brain showed multifocal acute and chronic infarcts involving both the anterior circulation and posterior circulation. This is concerning for a cardio-embolic etiology and therefor I recommend prolonged cardiac monitoring with either a loop recorder or Holter monitor to be arranged by cardiology. According to the patient, she was taking Aggrenox at home only once daily. She was not taking this appropriately since it should be dosed BID. This will be adjusted. I recommend obtaining a REAGAN to further evaluate for any potential cardiac thrombus since the location of these strokes is suspicious. Continue managing other stroke risk factors and obtain PT/OT eval and treat as needed. Status: Acute
[2016-10-06] MEDS: Insulin Detemir 100 Units/ml Inj SC SCH (22:17)
[2016-10-07 08:02] LABS: MEAN CELL VOLUME 84.2 fl (81.0-99.0); MEAN CORPUSCULAR HGB CONC 33.2 g/dL (33.0-37.0); RED CELL DISTRIBUTION WIDTH 13.9 % (11.5-14.5); WHITE BLOOD COUNT 12.4 K/uL (4.8-10.8)
[2016-10-07 08:27] LABS: CALCIUM 9.2 mg/dL (8.4-10.2); POTASSIUM 3.9 MMOL/L (3.6-5.0)
--- NOTE | 2016-10-07 08:35 | PN ---
DATE: 10/07/2016 The patient seen and examined. Interim events noted. Consults noted, appreciated. Neurology follow up and intervention noted and appreciated. The patient remains in progressive care unit on telemetry monitoring. The patient feels okay. No specific complaint, no chest pain, no shortness of breath. PHYSICAL EXAMINATION: GENERAL: The patient is in no acute distress. VITAL SIGNS: Stable. HEART: S1, S2 normal, regular. LUNGS: Good bilateral air exchange. ABDOMEN: Soft, nontender. EXTREMITIES: No edema, no calf swelling, no tenderness, no acute ischemia. CENTRAL NERVOUS SYSTEM: Essentially unchanged. DIAGNOSTIC DATA: Available diagnostic data reviewed. Telemetry monitoring does not show significant arrhythmias. Overall, the patient's general medical condition is stable. MRI shows acute stroke. Case and plan d iscussed with patient, need for control of risk factors explained in detail. PLAN: As ordered. Federico Davey MD cc: [id number] TT: 10/07/2016 08:35:23 Confirmation # [id number] Dictation # [id number] tn
[2016-10-07] MEDS: Enoxaparin 40 mg Syringe SC SCH (08:47)
[2016-10-07] MEDS: Pravastatin Sodium 20 MG TAB PO SCH (08:48)
[2016-10-07] MEDS: Aspirin-Dipyridamole 200-25 mg ER Cap PO SCH ×2 (08:48→21:36)
[2016-10-07] MEDS: Insulin Lispro (humaLOG) 100 Units/ml Inj SC SCH ×3 (08:50→16:53)
[2016-10-07 09:03] LABS: ALB/GLOB RATIO 0.9 (1.0-2.1); BILIRUBIN,TOTAL 0.3 mg/dl (0.2-1.3); CALCIUM 9.1 mg/dL (8.4-10.2); TOTAL PROTEIN 7.6 G/DL (6.3-8.2)
[2016-10-07] MEDS: Insulin Detemir 100 Units/ml Inj SC SCH (21:36)
[2016-10-08 07:10] LABS: HEMATOCRIT 36.4 % (34.0-47.0); MEAN CELL VOLUME 84.7 fl (81.0-99.0); MEAN CORPUSCULAR HEMOGLOBIN 27.8 pg (27.0-31.0); MEAN CORPUSCULAR HGB CONC 32.8 g/dL (33.0-37.0); RED CELL DISTRIBUTION WIDTH 13.7 % (11.5-14.5); WHITE BLOOD COUNT 11.7 K/uL (4.8-10.8)
[2016-10-08] MEDS: Aspirin-Dipyridamole 200-25 mg ER Cap PO SCH ×2 (08:00→20:54)
[2016-10-08] MEDS: Insulin Lispro (humaLOG) 100 Units/ml Inj SC SCH ×3 (08:01→16:51)
[2016-10-08] MEDS: Enoxaparin 40 mg Syringe SC SCH (08:02)
[2016-10-08] MEDS: Pravastatin Sodium 20 MG TAB PO SCH (08:03)
--- NOTE | 2016-10-08 08:10 | PN ---
DATE: 10/08/2016 The patient seen and examined. Interim events noted. Consults noted, appreciated. The patient baldemar ins in progressive care unit on telemetry monitoring. The patient feels okay. Denies any specific c omplaint of chest pain, shortness of breath, weakness, or dizziness. PHYSICAL EXAMINATION: GENERAL: The patient is in no acute distress. VITAL SIGNS: Stable. HEART: S1, S2 normal, regular. LUNGS: Good bilateral air exchange. ABDOMEN: Soft, nontender. EXTREMITIES: No edema, no calf swelling, no tenderness, no acute ischemia. CENTRAL NERVOUS SYSTEM: Essentially unchanged. DIAGNOSTIC DATA: Available diagnostic data reviewed. Telemetry monitoring does not reveal significa nt arrhythmia. Overall, patient's general medical condition is stable. PLAN: As ordered. Federico Daevy MD cc: [id number] TT: 10/08/2016 08:09:29 Confirmation # [id number] Dictation # [id number]
[2016-10-08] MEDS: Insulin Detemir 100 Units/ml Inj SC SCH (22:06)
--- NOTE | 2016-10-09 04:41 | CP.PCM.CON ---
History of Present Illness - History of Present Illness History of Present Illness: I was asked to see patient by Dr. Davey. Patient is a 50 year old female with PMH HtN, DM, hypercholesterolemia who presents with near syncope. The patietn reports a sensation of lighheadedness and dizziness. She felt unsteady. She presented to [facility] and has undergone neuro eval. The patient is s/p MRI revealing multiple acute and chronic infarcts involving the posterior circulation. Consultation is requested regarding REAGAN. The patient denies current palpitations or dyspnea. Review of Systems - Constitutional Constitutional: absent: As Per HPI, Anorexia, Chills, Daytime Sleepiness, Excessive Sweating, Fatigue, Fever, Frequent Falls, Headache, Increased Appetite , Lethargy, Malaise, Night Sweats, Snoring, Sleep Apnea, Weight Gain, Weight Loss, Weakness, Other - EENT Eyes: absent: As Per HPI, Blind Spots, Blurred Vision, Change in Vision, Decreased Night Vision, Diplopia, Discharge, Dry Eye, Exophthalmos, Floaters, Irritation, Itchy Eyes, Loss of Peripheral Vision, Pain, Photophobia, Requires Corrective Lenses, Sees Flashes, Spots in Vision, Tunnel Vision, Other Visual Disturbances, Loss of Vision, Other Ears: absent: As Per HPI, Decreased Hearing, Ear Discharge, Ear Pain, Tinnitus, Abnormal Hearing, Disequilibrium, Dizziness, Other Nose/Mouth/Throat: absent: As Per HPI, Epistaxis, Nasal Congestion, Nasal Discharge, Nasal Obstruction, Nasal Trauma, Nose Pain, Post Nasal Drip, Sinus Pain, Sinus Pressure, Bleeding Gums, Change in Voice, Dental Pain, Dry Mouth, Dysphagia, Halitosis, Hoarsness, Lip Swelling, Mouth Lesions, Mouth Pain, Odynophagia, Sore Throat, Throat Swelling, Tongue Swelling, Facial Pain, Neck Pain, Neck Mass, Other - Cardiovascular Cardiovascular: absent: As Per HPI, Acrocyanosis, Chest Pain, Chest Pain at Rest , Chest Pain with Activity, Claudication, Diaphoresis, Dyspnea, Dyspnea on Exertion, Edema, Irregular Heart Rhythm, Pain Radiating to Arm/Neck/Jaw, Leg Edema, Leg Ulcers, Lightheadedness, Orthopnea, Palpitations, Paroxysmal Nocturnal Dyspnea, Pedal Edema, Radiating Pain, Rapid Heart Rate, Slow Heart Rate, Syncope, Other - Respiratory Respiratory: absent: As Per HPI, Cough, Dyspnea, Hemoptysis, Dyspnea on Exertion , Wheezing, Snoring, Stridor, Pain on Inspiration, Chest Congestion, Excessive Mucous Production, Change in Mucous Color, Pain with Coughing, Other - Gastrointestinal Gastrointestinal: absent: As Per HPI, Abdominal Pain, Belching, Bloating, Change in Bowel Habits, Change in Stool Character, Coffee Ground Emesis, Constipation, Cramping, Diarrhea, Dyspepsia, Dysphagia, Early Satiety, Excessive Flatus, Fecal Incontinence, Heartburn, Hematemesis, Hematochezia, Loose Stools, Melena, Nausea, Odynophagia, Temesmus, Vomiting, Other - Genitourinary Genitourinary: absent: As Per HPI, Change in Urinary Stream, Difficulty Urinating, Dysuria, Flank Pain, Hematuria, Pyuria, Nocturia, Urinary Incontinence, Urinary Frequency, Urinary Hesitance, Urinary Urgency, Voiding Freq/Small Amts, Freq UTI, Hx Renal/Bladder Calculi, Hx /Renal Surgery, Bladder Distension, Other - Musculoskeletal Musculoskeletal: absent: As Per HPI, Abnormal Gait, Arthralgias, Atrophy, Back Pain, Deformity, Joint Swelling, Limited Range of Motion, Loss of Height, Muscle Cramps, Muscle Weakness, Myalgias, Neck Pain, Numbness, Radiating Pain into Limb, Stiffness, Tingling, Other - Integumentary Integumentary: absent: As Per HPI, Acne, Alopecia, Bleeding Lesions, Change in Hair, Change in Nails, Change in Pigmentation, Changing Lesions, Dry Skin, Erythema, Furuncle, Hirsutism, Lesions, New Lesions, Non-Healing Lesions, Photosensitivity, Pruritus, Rash, Skin Pain, Skin Ulcer, Sores, Striae, Swelling , Unusual Bruising, Wounds, Jaundice, Other - Neurological Neurological: Lack of Coordination, Syncope - Psychiatric Psychiatric: absent: As Per HPI, Abnormal Sleep Pattern, Anhedonia, Anxiety, Auditory Hallucinations, Behavioral Changes, Change in Appetite, Change in Libido, Confusion, Depression, Difficulty Concentrating, Hallucinations, Homicidal Ideation, Hopelessness, Irritability, Memory Loss, Mood Swings, Panic Attacks, Paranoia, Suicidal Ideation, Visual Hallucinations, Tactile Hallucinations, Other - Endocrine Endocrine: absent: As Per HPI, Change in Body Appearance, Change in Libido, Cold Intolorance, Deepening of Voice, Excessive Sweating, Fatigue, Flushing, Heat Intolorance, Increase in Ring/Shoe/Hat Size, Palpitations, Polydipsia, Polyphagia, Polyuria, Other - Hematologic/Lymphatic Hematologic: absent: As Per HPI, Easy Bleeding, Easy Bruising, Lymphadenopathy, Other Past Patient History - Infectious Disease Hx of Infectious Diseases: None - Past Medical History & Family History Past Medical History?: Yes - Past Social History Smoking Status: Never Smoked - CARDIAC Hx Hypertension: Yes - PULMONARY Hx Respiratory Disorders: No - NEUROLOGICAL HX Cerebrovascular Accident: Yes - HEENT Hx HEENT Problems: No - RENAL Hx Chronic Kidney Disease: No - ENDOCRINE/METABOLIC Hx Diabetes Mellitus Type 1: Yes - HEMATOLOGICAL/ONCOLOGICAL Hx Blood Disorders: No - INTEGUMENTARY Hx Dermatological Problems: No - MUSCULOSKELETAL/RHEUMATOLOGICAL Hx Arthritis: Yes - GASTROINTESTINAL Hx Gastrointestinal Disorders: No - GENITOURINARY/GYNECOLOGICAL Hx Genitourinary Disorders: No - PSYCHIATRIC Hx Psychophysiologic Disorder: No Hx Substance Use: No - SURGICAL HISTORY Hx Surgeries: Yes Hx Section: Yes Hx Tubal Ligation: Yes (11 years ago) - ANESTHESIA Hx Anesthesia: Yes Hx Anesthesia Reactions: No Hx Malignant Hyperthermia: No Has any member of the family had a problem w/ anesthesia?: No Meds Allergies/Adverse Reactions: Allergies Allergy/AdvReac Type Severity Reaction Status Date / Time No Known Allergies Allergy Unverified 01/28/14 17:46 - Medications Medications: Current Medications Acetaminophen (Tylenol 325mg Tab) 650 mg PO Q4 PRN PRN Reason: Headache Last Admin: 10/08/16 20:52 Dose: 650 mg Amlodipine Besylate (Norvasc) 10 mg PO DAILY [facility] Last Admin: 10/08/16 08:02 Dose: 10 mg Apixaban (Eliquis) 5 mg PO BID [facility] PRN Reason: Protocol Dextrose (Dextrose 50% Inj) 0 ml IV STAT PRN; Protocol PRN Reason: Hyglycemia Protocol Dextrose (Glutose 15) 0 gm PO ONCE PRN; Protocol PRN Reason: Hypoglycemia Protocol Dipyridamole/Aspirin (Aggrenox 25-200 Mg) 1 ea PO Q12 [facility] Last Admin: 10/08/16 20:54 Dose: 1 ea Glucagon (Glucagen Diagnostic Kit) 0 mg IM STAT PRN; Protocol PRN Reason: Hypoglycemia Protocol Insulin Detemir (Levemir) 40 units SC HS [facility] Last Admin: 10/08/16 22:06 Dose: 40 units Insulin Human Lispro (Humalog) 10 units SC TID [facility] Last Admin: 10/08/16 16:51 Dose: 10 units Lisinopril (Zestril) 20 mg PO DAILY [facility] Last Admin: 10/08/16 08:03 Dose: 20 mg Metformin HCl (Glucophage) 850 mg PO BID [facility] Last Admin: 10/08/16 16:52 Dose: 850 mg Nitrofurantoin Macrocrystals (Macrobid) 100 mg PO Q12 [facility] Last Admin: 10/08/16 20:54 Dose: 100 mg Ondansetron HCl (Zofran Inj) 4 mg IVP Q4 PRN PRN Reason: Nausea/Vomiting Last Admin: 10/08/16 16:51 Dose: 4 mg Paroxetine HCl (Paxil) 20 mg PO QAM [facility] Last Admin: 10/08/16 08:03 Dose: 20 mg Pravastatin Sodium (Pravachol) 20 mg PO DAILY [facility] Last Admin: 10/08/16 08:03 Dose: 20 mg Physical Exam - Constitutional Appears: Non-toxic - Head Exam Head Exam: NORMAL INSPECTION - Eye Exam Eye Exam: Normal appearance - ENT Exam ENT Exam: Mucous Membranes Moist - Neck Exam Neck exam: Positive for: Full Rom - Respiratory Exam Respiratory Exam: NORMAL BREATHING PATTERN - Cardiovascular Exam Cardiovascular Exam: REGULAR RHYTHM - GI/Abdominal Exam GI & Abdominal Exam: Normal Bowel Sounds - Rectal Exam Rectal Exam: Deferred - Extremities Exam Extremities exam: Negative for: pedal edema - Back Exam Back exam: NORMAL INSPECTION - Neurological Exam Neurological exam: Alert - Psychiatric Exam Psychiatric exam: Normal Affect - Skin Skin Exam: Normal Color Results - Vital Signs Recent Vital Signs: Last Vital Signs Temp 97.6 F 10/09/16 00:11 Pulse 88 10/09/16 00:11 Resp 18 10/09/16 00:11 BP 138/84 10/09/16 00:11 Pulse Ox 96 10/09/16 00:11 - Labs Result Diagrams: 10/08/16 05:30 10/07/16 08:00 Labs: Laboratory Results - last 24 hr 10/08/16 10/08/16 10/08/16 05:24 05:30 11:45 WBC 11.7 H RBC 4.30 Hgb 11.9 L Hct 36.4 MCV 84.7 MCH 27.8 MCHC 32.8 L RDW 13.7 Plt Count 238 POC Glucose (mg/dL) 95 97 10/08/16 10/08/16 10/08/16 16:05 16:50 21:24 WBC RBC Hgb Hct MCV MCH MCHC RDW Plt Count POC Glucose (mg/dL) 71 110 111 H - EKG Data EKG Interpreted by: Myself Assessment & Plan (1) CVA (cerebral vascular accident) Assessment and Plan: I discussed MRI findings with Dr. Rehman. The patietn has evidence of multiple cerebral emboli. REAGAN can be performed, but the likely management will include anticoagulation regardless of REAGAN findings. The patient does not have contrindication to anticaogulation, and therefore recommend deferring REAGAN, and starting Eliquis 5 mg BID. Status: Acute (2) Hypertension Assessment and Plan: Patient has LVH on EKG. recommend echocardiogram to assess chamber dimensions. Blood pressure control. Status: Acute
[2016-10-09 05:11] LABS: HEMATOCRIT 35.7 % (34.0-47.0); MEAN CELL VOLUME 85.2 fl (81.0-99.0); MEAN CORPUSCULAR HGB CONC 32.8 g/dL (33.0-37.0); RED CELL DISTRIBUTION WIDTH 13.5 % (11.5-14.5); WHITE BLOOD COUNT 11.7 K/uL (4.8-10.8)
[2016-10-09 05:18] LABS: ALB/GLOB RATIO 0.9 (1.0-2.1); BILIRUBIN,TOTAL 0.2 mg/dl (0.2-1.3); CALCIUM 8.9 mg/dL (8.4-10.2); TOTAL PROTEIN 7.3 G/DL (6.3-8.2)
[2016-10-09] MEDS: Aspirin-Dipyridamole 200-25 mg ER Cap PO SCH ×2 (08:58→21:53)
[2016-10-09] MEDS: Pravastatin Sodium 20 MG TAB PO SCH (08:58)
[2016-10-09] MEDS: Insulin Lispro (humaLOG) 100 Units/ml Inj SC SCH ×3 (08:59→17:27)
--- NOTE | 2016-10-09 09:00 | PN ---
DATE: 10/09/2016 The patient is seen and examined. Interim events noted. Consults noted and appreciated. Cardiology followup and intervention noted and appreciated. The patient remains in progressive care unit on te lemetry monitoring. The patient feels okay. No specific complaint, no chest pain, no shortness of b reath. PHYSICAL EXAMINATION: GENERAL: The patient is in no acute distress. VITAL SIGNS: Stable. HEART: S1, S2 normal, regular. LUNGS: Good bilateral air exchange. ABDOMEN: Soft, nontender. EXTREMITIES: No edema, no calf swelling, no tenderness, no acute ischemia. CENTRAL NERVOUS SYSTEM: Essentially unchanged. DIAGNOSTIC DATA: Available diagnostic data reviewed. Telemetry monitoring does not show significant arrhythmias. Overall, the patient's general medical condition is stable. PLAN: As ordered. Case and plan discussed with the patient. Federico Davey MD cc: [id number] TT: 10/09/2016 08:59:59 Confirmation # [id number] Dictation # [id number]
--- NOTE | 2016-10-09 10:29 | PQF GENQUE ---
Dr. Davey, Please provide a nutritional diagnosis, if known, related to the information below: The following clinical indicators are present in the medical record: BMI: 44.9 : see RD note of 10/08/2016 10/08/2016: Nutritional consult stated: Classification Obesity III The patient received the following treatment, evaluation or monitoring: RD note : Monitoring/Evaluation:PO intake, weight, medication, labs and skin; Nutrition Education and handout OR: Unable to determine OR: Disagree OR: Other explanation of clinical finding This form is a permanent part of the medical record Clarification of your documentation is requested to better reflect the severity of illness and intensity of treatment of your patient. Indicators present [] Specify: [] [] Specify: [] [] Specify: [] [] Specify: [] Location in the medical record that reflects the above clinical findings: [] Treatment Provided: [] PHYSICIAN'S RESPONSE Based on your medical judgment of the clinical indicators outlined above please clarify the following: [] Practitioner response [] If unable to determine, please check the box, sign and date. Present On Admission (POA) Indicator: [] Present at the time of admission [] Not present at the time of admission [] Clinically Undetermined In responding to this query, please exercise your independent professional judgment. The fact that a question is asked does not imply that any particular answer is desired or expected. Thank you for your clarification on this documentation. If you have any questions please call. * Thank you, Grace Panchal RN BSN ext. #[phone] MTDD
--- NOTE | 2016-10-09 10:46 | PQF GENQUE ---
Dr. Davey, Etiology of CVA if known after the work up is completed? i.e. due to embolism or occlusion or thrombosis OR: Unable to determine 10/06 Neurology note: Assessment and Plan :CVA (cerebral vascular accident) The MRI of the brain showed multifocal acute and chronic infarcts involving both the anterior circulation and posterior circulation. This is concerning for a cardio-embolic etiology and therefor I recommend prolonged cardiac monitoring with either a loop recorder or Holter monitor to be arranged by cardiology. According to the patient, she was taking Aggrenox at home only once daily. She was not taking this appropriately since it should be dosed BID. This will be adjusted. I recommend obtaining a REAGAN to further evaluate for any potential cardiac thrombus since the location of these strokes is suspicious. Continue managing other stroke risk factors 10/09: Cardiology note: CVA (cerebral vascular accident) Assessment and Plan: I discussed MRI findings with Dr. Rehman. The patient has evidence of multiple cerebral emboli. REAGAN can be performed, but the likely management will include anticoagulation regardless of REAGAN findings. The patient does not have contraindication to anticoagulation, and therefore recommend deferring REAGAN, and starting Eliquis 5 mg BID. Status: Acute This form is a permanent part of the medical record Clarification of your documentation is requested to better reflect the severity of illness and intensity of treatment of your patient. Indicators present [] Specify: [] [] Specify: [] [] Specify: [] [] Specify: [] Location in the medical record that reflects the above clinical findings: [] Treatment Provided: [] PHYSICIAN'S RESPONSE Based on your medical judgment of the clinical indicators outlined above please clarify the following: [] Practitioner response [] If unable to determine, please check the box, sign and date. Present On Admission (POA) Indicator: [] Present at the time of admission [] Not present at the time of admission [] Clinically Undetermined In responding to this query, please exercise your independent professional judgment. The fact that a question is asked does not imply that any particular answer is desired or expected. Thank you for your clarification on this documentation. If you have any questions please call. * Thank you, Grace Panchal RN BSN ext. #[phone] MTDD
--- NOTE | 2016-10-09 19:11 | CARD ---
APPROVED REPORT EXAM: Two-dimensional and M-mode echocardiogram with Doppler and color Doppler. Other Information Quality : AverageRhythm : NSR Technically limited study due to body habitus. INDICATION CVA/TIA Syncope 2D DIMENSIONS IVSd2.07 (0.7-1.1cm)LVDd4.00 (3.9-5.9cm) LVOT Diameter2.32 (1.8-2.4cm)PWd1.41 (0.7-1.1cm) IVSs2.22 (0.8-1.2cm)LVDs2.05 (2.5-4.0cm) FS (%) 48.7 %PWs1.91 (0.8-1.2cm) M-Mode DIMENSIONS Left Atrium (MM)3.50 (2.5-4.0cm)IVSd1.47 (0.7-1.1cm) Aortic Root3.35 (2.2-3.7cm)LVDd5.18 (4.0-5.6cm) Aortic Cusp Exc.1.79 (1.5-2.0cm)PWd1.47 (0.7-1.1cm) IVSs2.09 cmFS (%) 56 % LVDs2.26 (2.0-3.8cm)PWs1.82 cm Mitral Valve MV E Gipbfpnq81.6cm/sMV DECEL [id number] A Dvpphzbu53.8cm/s MV YHY24usA/A ratio1.5MVA (PHT)3.70cm2 TDI Lateral E' Peak V9.53cm/sMedial E' Peak V7.58cm/sE/Lateral E'8.7 E/Medial E'10.9 LEFT VENTRICLE The left ventricle is normal size. There is moderate to severe concentric left ventricular hypertrophy. The left ventricular function is normal. The left ventricular ejection fraction is 60-65% There is normal LV segmental wall motion. Transmitral Doppler flow pattern is Grade II-pseudonormal filling dynamics. No left ventricle thrombus noted on this study. There is no ventricular septal defect visualized. There is no left ventricular aneurysm. There is no mass noted in the left ventricle. RIGHT VENTRICLE The right ventricle is normal size. There is normal right ventricular wall thickness. The right ventricular systolic function is normal. ATRIA The left atrium size is normal. The right atrium size is normal. The interatrial septum is intact with no evidence for an atrial septal defect. AORTIC VALVE The aortic valve is normal in structure and function. No aortic regurgitation is present. There is no aortic valvular stenosis. There is no aortic valvular vegetation. MITRAL VALVE The mitral valve is normal in structure and function. There is no evidence of mitral valve prolapse. There is no mitral valve stenosis. There is no mitral valve regurgitation noted. TRICUSPID VALVE The tricuspid valve is normal in structure and function. There is no tricuspid valve regurgitation noted. There is no tricuspid valve prolapse or vegetation. There is no tricuspid valve stenosis. PULMONIC VALVE The pulmonary valve is normal in structure and function. There is no pulmonic valvular regurgitation. There is no pulmonic valvular stenosis. GREAT VESSELS The aortic root is normal in size. The ascending aorta is normal in size. The IVC is normal in size and collapses >50% with inspiration. PERICARDIAL EFFUSION The pericardium appears normal. There is no pleural effusion. <Conclusion> Normal LV Systolic Function Concentric LVH
[2016-10-09] MEDS: Insulin Detemir 100 Units/ml Inj SC SCH (21:54)
[2016-10-10 07:52] LABS: HEMATOCRIT 34.9 % (34.0-47.0); MEAN CELL VOLUME 84.9 fl (81.0-99.0); MEAN CORPUSCULAR HEMOGLOBIN 28.3 pg (27.0-31.0); MEAN CORPUSCULAR HGB CONC 33.4 g/dL (33.0-37.0); RED CELL DISTRIBUTION WIDTH 13.9 % (11.5-14.5); WHITE BLOOD COUNT 10.6 K/uL (4.8-10.8)
[2016-10-10 08:04] LABS: ALB/GLOB RATIO 0.9 (1.0-2.1); BILIRUBIN,TOTAL 0.3 mg/dl (0.2-1.3); POTASSIUM 3.8 MMOL/L (3.6-5.0); TOTAL PROTEIN 7.7 G/DL (6.3-8.2)
[2016-10-10] MEDS: Aspirin-Dipyridamole 200-25 mg ER Cap PO SCH (08:57)
[2016-10-10] MEDS: Insulin Lispro (humaLOG) 100 Units/ml Inj SC SCH ×3 (08:58→17:00)
[2016-10-10] MEDS: Pravastatin Sodium 20 MG TAB PO SCH (08:59)
[2016-10-10 11:58] VITALS: TEMP 98.1
--- NOTE | 2016-10-10 15:23 | CP.PCM.PN ---
Subjective - Date & Time of Evaluation Date of Evaluation: 10/10/16 - Subjective Subjective: The patient is seen and examined. Interim events noted. Consults noted and appreciated. Cardiology followup and intervention noted and appreciated. The patient remains in progressive care unit on telemetry monitoring. The patient feels okay. No specific complaint, no chest pain, no shortness of breath. PHYSICAL EXAMINATION: GENERAL: The patient is in no acute distress. VITAL SIGNS: Stable. HEART: S1, S2 normal, regular. LUNGS: Good bilateral air exchange. ABDOMEN: Soft, nontender. EXTREMITIES: No edema, no calf swelling, no tenderness, no acute ischemia. CENTRAL NERVOUS SYSTEM: Essentially unchanged. DIAGNOSTIC DATA: Available diagnostic data reviewed. Telemetry monitoring does not show significant arrhythmias. Over all pt is clinically stable, will go to rehab when bed available. Case and plan d/w pt. Objective - Vital Signs/Intake and Output Vital Signs (last 24 hours): Temp Pulse Resp BP Pulse Ox 98.1 F 79 18 122/75 97 10/10/16 11:58 10/10/16 11:58 10/10/16 11:58 10/10/16 11:58 10/10/16 11:58 Intake and Output: 10/10/16 10/10/16 06:59 18:59 Intake Total 250 Balance 250 - Medications Medications: Current Medications Acetaminophen (Tylenol 325mg Tab) 650 mg PO Q4 PRN PRN Reason: Headache Last Admin: 10/09/16 19:03 Dose: 650 mg Amlodipine Besylate (Norvasc) 10 mg PO DAILY [facility] Last Admin: 10/10/16 08:59 Dose: 10 mg Apixaban (Eliquis) 5 mg PO BID [facility] PRN Reason: Protocol Last Admin: 10/10/16 08:57 Dose: 5 mg Dextrose (Dextrose 50% Inj) 0 ml IV STAT PRN; Protocol PRN Reason: Hyglycemia Protocol Dextrose (Glutose 15) 0 gm PO ONCE PRN; Protocol PRN Reason: Hypoglycemia Protocol Dipyridamole/Aspirin (Aggrenox 25-200 Mg) 1 ea PO Q12 [facility] Last Admin: 10/10/16 08:57 Dose: 1 ea Glucagon (Glucagen Diagnostic Kit) 0 mg IM STAT PRN; Protocol PRN Reason: Hypoglycemia Protocol Insulin Detemir (Levemir) 40 units SC HS [facility] Last Admin: 10/09/16 21:54 Dose: 40 units Insulin Human Lispro (Humalog) 10 units SC TID [facility] Last Admin: 10/10/16 13:00 Dose: 10 units Lisinopril (Zestril) 20 mg PO DAILY [facility] Last Admin: 10/10/16 09:00 Dose: 20 mg Metformin HCl (Glucophage) 850 mg PO BID [facility] Last Admin: 10/10/16 08:57 Dose: 850 mg Nitrofurantoin Macrocrystals (Macrobid) 100 mg PO Q12 [facility] Last Admin: 10/10/16 08:59 Dose: 100 mg Ondansetron HCl (Zofran Inj) 4 mg IVP Q4 PRN PRN Reason: Nausea/Vomiting Last Admin: 10/08/16 16:51 Dose: 4 mg Paroxetine HCl (Paxil) 20 mg PO QAM [facility] Last Admin: 10/10/16 08:59 Dose: 20 mg Pravastatin Sodium (Pravachol) 20 mg PO DAILY [facility] Last Admin: 10/10/16 08:59 Dose: 20 mg - Labs Labs: 10/10/16 07:30 10/10/16 07:30
[2016-10-10 16:08] VITALS: BP 109/73; PULSE 80; RESP 20; O2SAT 99
--- NOTE | 2016-10-10 19:01 | CP.PCM.PN ---
Subjective - Date & Time of Evaluation Date of Evaluation: 10/10/16 Time of Evaluation: 16:00 - Subjective Subjective: Patient denies chest pain or dyspnea. Objective - Vital Signs/Intake and Output Vital Signs (last 24 hours): Temp Pulse Resp BP Pulse Ox 98.1 F 80 20 109/73 99 10/10/16 16:00 10/10/16 16:00 10/10/16 16:00 10/10/16 16:00 10/10/16 16:00 Intake and Output: 10/10/16 10/10/16 06:59 18:59 Intake Total 250 Balance 250 - Medications Medications: Current Medications Acetaminophen (Tylenol 325mg Tab) 650 mg PO Q4 PRN PRN Reason: Headache Last Admin: 10/09/16 19:03 Dose: 650 mg Amlodipine Besylate (Norvasc) 10 mg PO DAILY [facility] B[facility]S AT [facility] Last Admin: 10/10/16 08:59 Dose: 10 mg Apixaban (Eliquis) 5 mg PO BID [facility] B[facility]S AT [facility] PRN Reason: Protocol Last Admin: 10/10/16 18:17 Dose: 5 mg Dextrose (Dextrose 50% Inj) 0 ml IV STAT PRN; Protocol PRN Reason: Hyglycemia Protocol Dextrose (Glutose 15) 0 gm PO ONCE PRN; Protocol PRN Reason: Hypoglycemia Protocol Dipyridamole/Aspirin (Aggrenox 25-200 Mg) 1 ea PO Q12 [facility] B[facility]S [facility] Last Admin: 10/10/16 08:57 Dose: 1 ea Glucagon (Glucagen Diagnostic Kit) 0 mg IM STAT PRN; Protocol PRN Reason: Hypoglycemia Protocol Insulin Detemir (Levemir) 40 units SC HS [facility] 234 B[facility]S AT [facility] Last Admin: 10/09/16 21:54 Dose: 40 units Insulin Human Lispro (Humalog) 10 units SC TID [facility] 234 B[facility]S AT [facility] Last Admin: 10/10/16 17:00 Dose: Not Given Lisinopril (Zestril) 20 mg PO DAILY [facility] 234 B[facility]S AT [facility] Last Admin: 10/10/16 09:00 Dose: 20 mg Metformin HCl (Glucophage) 850 mg PO BID [facility] 234 B[facility]S AT [facility] Last Admin: 10/10/16 18:00 Dose: 850 mg Nitrofurantoin Macrocrystals (Macrobid) 100 mg PO Q12 [facility] 234 B[facility]S AT [facility] Last Admin: 10/10/16 08:59 Dose: 100 mg Ondansetron HCl (Zofran Inj) 4 mg IVP Q4 PRN PRN Reason: Nausea/Vomiting Last Admin: 10/08/16 16:51 Dose: 4 mg Paroxetine HCl (Paxil) 20 mg PO QAM [facility] 234 B[facility]S AT [facility] Last Admin: 10/10/16 08:59 Dose: 20 mg Pravastatin Sodium (Pravachol) 20 mg PO DAILY [facility] 234 BEDS AT [facility] Last Admin: 10/10/16 08:59 Dose: 20 mg - Labs Labs: 10/10/16 07:30 10/10/16 07:30 - Constitutional Appears: Non-toxic - Head Exam Head Exam: NORMAL INSPECTION - Eye Exam Eye Exam: Normal appearance - ENT Exam ENT Exam: Mucous Membranes Moist - Neck Exam Neck Exam: Full ROM - Respiratory Exam Respiratory Exam: Decreased Breath Sounds - Cardiovascular Exam Cardiovascular Exam: REGULAR RHYTHM - GI/Abdominal Exam GI & Abdominal Exam: Normal Bowel Sounds - Rectal Exam Rectal Exam: Deferred - Extremities Exam Extremities Exam: absent: Pedal Edema - Back Exam Back Exam: NORMAL INSPECTION - Neurological Exam Neurological Exam: Alert - Psychiatric Exam Psychiatric exam: Normal Affect - Skin Skin Exam: Normal Color Assessment and Plan (1) CVA (cerebral vascular accident) Assessment & Plan: continue Eliquis Status: Acute (2) Hypertension Assessment & Plan: blood pressure is controlled Status: Acute
== END 2016-10-10 20:00 | DRG 14 ==
LOC: H.ER 12:34 → H.ERHOLD 17:51 → H.TEL 21:10 → OBSVTOIN 10-05 15:34 → H.TEL 10-10 14:49
PROVIDERS: ADMIT Internal Medicine; ATTEND Internal Medicine
DX: I63.9 Cerebral infarction, unspecified (principal); E10.65 Type 1 diabetes mellitus with hyperglycemia; I10 Essential (primary) hypertension; N39.0 Urinary tract infection, site not specified; E78.00 Pure hypercholesterolemia, unspecified; E66.9 Obesity, unspecified; Z68.41 Body mass index [BMI] 40.0-44.9, adult; Z71.3 Dietary counseling and surveillance; Z79.4 Long term (current) use of insulin; Z86.73 Personal history of transient ischemic attack (TIA), and cerebral infarction without residual deficits; Z98.51 Tubal ligation status; M19.90 Unspecified osteoarthritis, unspecified site; Z79.84 Long term (current) use of oral hypoglycemic drugs

== ENCOUNTER 2016-11-23 14:49 | Emergency (ER) | payer MEDICAID ==
[2016-11-23 14:49] VITALS: BMI 38.9
[2016-11-23 14:54] VITALS: TEMP 97.9; O2SAT 97
--- NOTE | 2016-11-23 16:47 | ED PDOC ---
HPI: Back Time Seen by Provider: 11/23/16 15:06 Chief Complaint (Nursing): Back Pain Chief Complaint (Provider): Back pain History Per: Patient History/Exam Limitations: no limitations Onset/Duration Of Symptoms: Days (x2) Additional Complaint(s): Samira Dao is 51 year old female presenting to the ED for an evaluation of a 2 day history of right sided back pain. The patient states she was discharged from Rehab after CVA. Upon being discharged, the patient went into her bathtub at 9 AM and was unable to get out due to her back pain until her housing worker found her and called the ambulance. The patient reports she was able to ambulate after being taken out of the bathtub. She denies trauma, weakness, paresthesia, chest pain, or shortness of breath. PMD: Ivana Valverde MD Past Medical History Reviewed: Historical Data, Nursing Documentation, Vital Signs Vital Signs: Last Vital Signs Temp 97.9 F 11/23/16 14:53 Pulse 73 11/23/16 14:53 Resp 20 11/23/16 14:53 BP 154/107 H 11/23/16 14:53 Pulse Ox 97 11/23/16 14:53 - Medical History PMH: Arthritis, CVA, Diabetes (type I), HTN Denies: Chronic Kidney Disease - Surgical History Surgical History: (x4) - Family History Family History: States: Unknown Family Hx - Home Medications Home Medications: Ambulatory Orders Medication Instructions Recorded Insulin Lispro [humALOG] 10 unit SC TID 10/04/16 PARoxetine [Paxil] 20 mg PO QAM 10/04/16 Pravastatin Sodium [Pravachol] 20 mg PO DAILY 10/04/16 metFORMIN [glucOPHAGE] 850 mg PO BID 10/04/16 Acetaminophen [Tylenol 325mg tab] 650 mg PO Q4 PRN tab 10/10/16 Apixaban [Eliquis] 5 mg PO BID tab 10/10/16 Aspirin/Dipyridamole [Aggrenox 1 ea PO Q12 cap 10/10/16 25-200 mg] Insulin Detemir [Levemir] 40 units SC HS vial 10/10/16 Lisinopril [Zestril] 20 mg PO DAILY tab 10/10/16 Nitrofurantoin Macrocrystals 100 mg PO Q12 7 Days 10/10/16 [Macrobid] Ondansetron [Zofran Inj] 4 mg IVP Q4 PRN vial 10/10/16 amLODIPine [Norvasc] 10 mg PO DAILY tab 10/10/16 Cyclobenzaprine [Cyclobenzaprine 10 mg PO TID PRN #15 tab 11/23/16 HCl] Naproxen [Naprosyn] 500 mg PO BID PRN #15 tablet 11/23/16 - Allergies Allergies/Adverse Reactions: Allergies Allergy/AdvReac Type Severity Reaction Status Date / Time No Known Allergies Allergy Unverified 01/28/14 17:46 Review of Systems Cardiovascular: Negative for: Chest Pain Respiratory: Negative for: Shortness of Breath Musculoskeletal: Positive for: Back Pain (right sided ) Neurological: Negative for: Weakness, Other (no paresthesia ) Physical Exam - Reviewed Nursing Documentation Reviewed: Yes Vital Signs Reviewed: Yes - Physical Exam Appears: Positive for: Well, Non-toxic, No Acute Distress Head Exam: Positive for: ATRAUMATIC, NORMAL INSPECTION, NORMOCEPHALIC Skin: Positive for: Normal Color, Warm, DRY Eye Exam: Positive for: EOMI, Normal appearance, PERRL ENT: Positive for: Normal ENT Inspection Neck: Positive for: Normal, Painless ROM Cardiovascular/Chest: Positive for: Regular Rate, Rhythm Respiratory: Positive for: CNT, Normal Breath Sounds Gastrointestinal/Abdominal: Positive for: Normal Exam, Bowel Sounds, Soft Back: Positive for: Normal Inspection, R CVA Tenderness Extremity: Positive for: Normal ROM Neurologic/Psych: Positive for: Alert, Oriented - Laboratory Results Result Diagrams: 11/23/16 16:55 11/23/16 16:55 - ECG Interpretation Of ECG: NSR @ 67, no ST-T changes. O2 Sat by Pulse Oximetry: 97 (RA) Pulse Ox Interpretation: Normal - CT Scan/US CT abd/pelvis Other Rad Studies (CT/US): Radiology Report Reviewed (No significant or acute findings to account for/ related to the clinical presentation. ) Medical Decision Making Medical Decision Makin:06 Impression: Right sided back pain Differential includes but is not limited to musculoskeletal back pain, nephrolithiasis, rhabdo Plan: * CT Abd & Pelvis W/O PO or IV Cont * ED EKG * COMP Metabolic Panel * CPK * CBC (With Differential) * Glucose, Blood, POC * Urinalysis * Reevaluation Pt ambulated to bathroom without difficulty. Scribe Attestation: Documented by Corin Javed, acting as a scribe for Lillian Tony MD. Provider Scribe Attestation: All medical record entries made by the Scribe were at my direction and personally dictated by me. I have reviewed the chart and agree that the record accurately reflects my personal performance of the history, physical exam, medical decision making, and the department course for this patient. I have also personally directed, reviewed, and agree with the discharge instructions and disposition. Disposition - Clinical Impression Clinical Impression: Flank pain - Disposition Referrals: Brad De La O [Outside] Ivana Valverde MD [Family Provider] - Disposition: Routine/Home Disposition Time: 18:28 Condition: STABLE Prescriptions: Cyclobenzaprine [Cyclobenzaprine HCl] 10 mg PO TID PRN #15 tab PRN Reason: Pain Naproxen [Naprosyn] 500 mg PO BID PRN #15 tablet PRN Reason: Pain, Moderate (4-7) Instructions: Flank Pain (ED) Forms: [employer] ([place])
--- NOTE | 2016-11-23 16:57 | CT ---
PROCEDURE: CT Abdomen and Pelvis without intravenous or oral contrast HISTORY: Right flank pain. COMPARISON: None. TECHNIQUE: Technique Contiguous axial images of the abdomen and pelvis without intravenous or oral contrast. Radiation dose: Total exam DLP = 1089.02 mGy-cm. This CT exam was performed using one or more of the following dose reduction techniques: Automated exposure control, adjustment of the mA and/or kV according to patient size, and/or use of iterative reconstruction technique. FINDINGS: LOWER THORAX: Unremarkable. LIVER: Unremarkable. GALLBLADDER AND BILE DUCTS: Unremarkable. PANCREAS: Unremarkable. No ductal dilatation. SPLEEN: Unremarkable. No splenomegaly. ADRENALS: Unremarkable. KIDNEYS AND URETERS: Right kidney: Unremarkable. No hydronephrosis. Left kidney: 2 mm calculus nonobstructing upper pole left kidney. BLADDER: Unremarkable. No calculus. REPRODUCTIVE: Unremarkable. APPENDIX: Unremarkable. Normal appendix. STOMACH AND BOWEL: Unremarkable. No obstruction. No gross mural thickening. PERITONEUM: Unremarkable. No significant fluid collection. No free air. LYMPH NODES: Unremarkable. No enlarged lymph nodes. VASCULATURE: Unremarkable. No aortic aneurysm. BONES: No acute fracture. OTHER FINDINGS: None . IMPRESSION: No significant or acute findings to account for/ related to the clinical presentation. Additional benign and/or incidental findings described above.
[2016-11-23 17:07] LABS: BASO # 0.1 K/uL (0.0-0.2); EOS # 0.7 K/uL (0.0-0.7); EOS % 6.1 % (0.0-4.0); HEMOGLOBIN 12.6 g/dL (12.0-16.0); LYMPH # 3.2 K/uL (1.0-4.3); LYMPH % 28.5 % (20.0-40.0); MEAN CELL VOLUME 85.5 fl (81.0-99.0); MEAN CORPUSCULAR HEMOGLOBIN 27.3 pg (27.0-31.0); MEAN CORPUSCULAR HGB CONC 31.9 g/dL (33.0-37.0); MEAN PLATELET VOLUME 8.8 fl (7.2-11.7); MONO % 8.5 % (0.0-10.0); NEUT # 6.3 K/uL (1.8-7.0); NEUT % 55.9 % (50.0-75.0); RBC 4.63 Mil/uL (3.80-5.20); RED CELL DISTRIBUTION WIDTH 14.9 % (11.5-14.5); WHITE BLOOD COUNT 11.3 K/uL (4.8-10.8)
[2016-11-23 17:12] VITALS: BP 154/107; PULSE 73; RESP 20
[2016-11-23 17:20] LABS: ALB/GLOB RATIO 1.1 (1.0-2.1); ALBUMIN 4.2 g/dL (3.5-5.0); ALT/SGPT 18 U/L (9-52); AST/SGOT 20 U/L (14-36); BLOOD UREA NITROGEN 19 mg/dl (7-17); CALCIUM 9.5 mg/dL (8.4-10.2); GFR AFRICAN-AMERICAN > 60; GFR NON-AFRICAN AMERICAN > 60
--- NOTE | 2016-11-24 07:25 | CARD ---
APPROVED REPORT EKG Measurement Heart [id number] <Conclusion> Normal sinus rhythm Normal ECG
== END 2016-11-23 22:43 | disposition home or self-care (01) ==
LOC: H.ER 14:49
DX: M54.9 Dorsalgia, unspecified (principal); R10.9 Unspecified abdominal pain; E11.9 Type 2 diabetes mellitus without complications; I10 Essential (primary) hypertension; Z79.01 Long term (current) use of anticoagulants; Z79.4 Long term (current) use of insulin; Z79.82 Long term (current) use of aspirin; Z86.73 Personal history of transient ischemic attack (TIA), and cerebral infarction without residual deficits

== ENCOUNTER 2016-11-24 03:45 | Emergency (ER) | payer MEDICAID ==
[2016-11-24 03:45] VITALS: BMI 38.9
[2016-11-24 03:48] VITALS: BP 136/74; PULSE 87; RESP 18; TEMP 98; O2SAT 98
--- NOTE | 2016-11-24 04:27 | ED PDOC ---
HPI: Back Time Seen by Provider: 11/24/16 04:15 Chief Complaint (Nursing): Back Pain Chief Complaint (Provider): back pain History Per: Patient History/Exam Limitations: no limitations Onset/Duration Of Symptoms: Days (2) Current Symptoms Are (Timing): Still Present Quality Of Discomfort: "Pain" Exacerbating Factor(s): Turning, Movement, Sitting, Standing Additional History Per: Patient Additional Complaint(s): 51 y/o female brought in by EMS for eval of right low back pain x 2 days. Patient seen in ED last night for same; states she did not fill the prescriptions and when she got home to take a shower she was still in pain so she came back to the ED. Patient did not take any medication for pain thus far. Denies fever, nausea/vomiting, numbness/weakness lower extremities, bowel/ bladder incontinence, urinary symptoms. Past Medical History Reviewed: Historical Data, Nursing Documentation, Vital Signs Vital Signs: Last Vital Signs Temp 98 F 11/24/16 03:46 Pulse 87 11/24/16 03:46 Resp 18 11/24/16 03:46 BP 136/74 11/24/16 03:46 Pulse Ox 98 11/24/16 03:46 - Medical History PMH: Arthritis, CVA, Diabetes (type I), HTN Denies: Chronic Kidney Disease - Surgical History Surgical History: (x4) - Family History Family History: States: Unknown Family Hx - Home Medications Home Medications: Ambulatory Orders Medication Instructions Recorded Insulin Lispro [humALOG] 10 unit SC TID 10/04/16 PARoxetine [Paxil] 20 mg PO QAM 10/04/16 Pravastatin Sodium [Pravachol] 20 mg PO DAILY 10/04/16 metFORMIN [glucOPHAGE] 850 mg PO BID 10/04/16 Acetaminophen [Tylenol 325mg tab] 650 mg PO Q4 PRN tab 10/10/16 Apixaban [Eliquis] 5 mg PO BID tab 10/10/16 Aspirin/Dipyridamole [Aggrenox 1 ea PO Q12 cap 10/10/16 25-200 mg] Insulin Detemir [Levemir] 40 units SC HS vial 10/10/16 Lisinopril [Zestril] 20 mg PO DAILY tab 10/10/16 Nitrofurantoin Macrocrystals 100 mg PO Q12 7 Days 10/10/16 [Macrobid] Ondansetron [Zofran Inj] 4 mg IVP Q4 PRN vial 10/10/16 amLODIPine [Norvasc] 10 mg PO DAILY tab 10/10/16 Cyclobenzaprine [Cyclobenzaprine 10 mg PO TID PRN #15 tab 11/23/16 HCl] Naproxen [Naprosyn] 500 mg PO BID PRN #15 tablet 11/23/16 - Allergies Allergies/Adverse Reactions: Allergies Allergy/AdvReac Type Severity Reaction Status Date / Time No Known Allergies Allergy Unverified 01/28/14 17:46 Review of Systems ROS Statement: Except As Marked, All Systems Reviewed And Found Negative Musculoskeletal: Positive for: Back Pain Physical Exam - Reviewed Nursing Documentation Reviewed: Yes Vital Signs Reviewed: Yes - Physical Exam Appears: Positive for: Well, Non-toxic, No Acute Distress Head Exam: Positive for: ATRAUMATIC, NORMAL INSPECTION, NORMOCEPHALIC Skin: Positive for: Normal Color Eye Exam: Positive for: Normal appearance ENT: Positive for: Normal ENT Inspection Cardiovascular/Chest: Positive for: Regular Rate, Rhythm Respiratory: Positive for: Normal Breath Sounds Back: Positive for: Muscle Spasm (right lspine paraspinals, right flank). Negative for: L CVA Tenderness, R CVA Tenderness, Vertebral Tenderness, Decreased ROM Extremity: Positive for: Normal ROM Neurologic/Psych: Positive for: Alert, Oriented. Negative for: Motor/Sensory Deficits - ECG O2 Sat by Pulse Oximetry: 98 - Progress ED Course And Treament: Chart reviewed, patient had labs, CT renal protocol, and udip which were all within normal limits. Patient was discharged with rx Naproxen and Flexeril, but did not take medications. Patient given Toradol IM and flexeril PO dose in ED with improvement of symptoms. Patient discharged with instructions to fill previous prescriptions. Advised warm compresses. Return to ED for worsening/concerning symptoms. Disposition - Clinical Impression Clinical Impression: Flank pain, Back pain - Patient ED Disposition Is Patient to be Admitted: No Counseled Patient/Family Regarding: Diagnosis, Need For Followup - Disposition Disposition: Routine/Home Disposition Time: 05:30 Condition: IMPROVED Instructions: Back Pain (ED)
== END 2016-11-24 05:46 | disposition home or self-care (01) ==
LOC: H.ER 03:45
DX: M54.5 Low back pain (principal); R10.9 Unspecified abdominal pain; I10 Essential (primary) hypertension; E10.9 Type 1 diabetes mellitus without complications; Z79.4 Long term (current) use of insulin

== ENCOUNTER 2016-12-13 19:11 | Inpatient (IN) | payer MEDICAID ==
[2016-12-13] MEDS ORDERED: Sodium Chloride 0.9% 1,000 ML IV STA ×2 (20:13→23:17)
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
[2016-12-13 20:56] LABS: BASO # 0.2 K/uL (0.0-0.2); BASO % 0.9 % (0.0-2.0); EOS # 0.2 K/uL (0.0-0.7); EOS % 0.9 % (0.0-4.0); HEMATOCRIT 42.5 % (34.0-47.0); LYMPH # 2.3 K/uL (1.0-4.3); LYMPH % 13.7 % (20.0-40.0); MEAN CELL VOLUME 84.2 fl (81.0-99.0); MEAN CORPUSCULAR HGB CONC 32.1 g/dL (33.0-37.0); MEAN PLATELET VOLUME 10.5 fl (7.2-11.7); MONO # 1.2 K/uL (0.0-0.8); NEUT # 13.2 K/uL (1.8-7.0); NEUT % 77.5 % (50.0-75.0); RED CELL DISTRIBUTION WIDTH 15.2 % (11.5-14.5); WHITE BLOOD COUNT 17.1 K/uL (4.8-10.8)
[2016-12-13 21:25] LABS: ALCOHOL SERUM < 10 mg/dl (0-10); ALKALINE PHOSPHATASE 112 U/L (38-126); ALT/SGPT 24 U/L (9-52); AST/SGOT 19 U/L (14-36); BILIRUBIN,TOTAL 0.7 mg/dl (0.2-1.3); BLOOD UREA NITROGEN 49 mg/dl (7-17); CALCIUM 9.4 mg/dL (8.4-10.2); CARBON DIOXIDE 27 mmol/L (22-30); CHLORIDE 94 mmol/L (98-107); GFR AFRICAN-AMERICAN 26; POTASSIUM 4.8 MMOL/L (3.6-5.0); SODIUM 133 mmol/l (132-148); TOTAL PROTEIN 8.7 G/DL (6.3-8.2)
[2016-12-13 21:27] LABS: GLUCOSE,RANDOM 497 mg/dL (65-105)
--- NOTE | 2016-12-13 21:46 | CT ---
EXAM: CT Head Without Intravenous Contrast CLINICAL HISTORY: 51 years old, female; Signs and symptoms; Altered mental status/memory loss; Other: Poss. Subsrance abuse; Additional info: AMS. Sent phy. Doc. TECHNIQUE: Axial computed tomography images of the head/brain without intravenous contrast. All CT scans at this facility use one or more dose reduction techniques, viz.: automated exposure control; ma/kV adjustment per patient size (including targeted exams where dose is matched to indication; i.e. head); or iterative reconstruction technique. Coronal and sagittal reformatted images were created and reviewed. COMPARISON: No relevant prior studies available. FINDINGS: Brain: Mild atrophy. No intracranial hemorrhage. No mass. Multiple scattered foci of decreased attenuation within periventricular/subcortical white matter. Probable chronic infarct within RIGHT basal ganglia/external capsule. Ill-defined decreased attenuation within RIGHT temporal occipital parietal region with loss of dobbins-white matter differentiation. Ill-defined decreased attenuation within LEFT cerebellar region with loss of dobbins-white matter differentiation. Midline shift: None. Ventricles: No hydrocephalus. Bones/joints: No acute fracture. Soft tissues: Unremarkable. Vasculature: Minimal atherosclerotic disease of intracranial arteries. Sinuses: No acute sinusitis. Mastoid air cells: No mastoid effusion. Orbits: Unremarkable as visualized. IMPRESSION: 1. Suspect acute/subacute infarction within RIGHT temporal occipital parietal, LEFT cerebellar regions. Suggest MRI. 2. Chronic ischemic white matter changes. 3. Incidental/non-acute findings are described above.
[2016-12-13] MEDS ORDERED: Insulin Regular 100 units/ml IV STA (21:51)
[2016-12-13] MEDS ORDERED: Insulin Regular 100 units/ml ONE (21:56)
[2016-12-13 22:10] LABS: ABG ALLEN TEST YES; ARTERIAL BLOOD GAS HCO3 27.6 mmol/L (21-28); ARTERIAL BLOOD GAS PH 7.43 (7.35-7.45); ARTERIAL BLOOD GAS PO2 58 mm/Hg (80-100)
[2016-12-13 22:48] LABS: URINE BACTERIA RARE (<OCC); URINE BILIRUBIN NEGATIVE (NEGATIVE); URINE BLOOD SMALL (NEGATIVE); URINE COLOR YELLOW (YELLOW); URINE GLUCOSE (UA) >=500 mg/dL (Normal); URINE KETONE NEGATIVE (NEGATIVE); URINE LEUKOCYTE ESTERASE NEG Leu/uL (Negative); URINE PROTEIN 100 mg/dL (NEGATIVE); URINE UROBILINOGEN 0.2-1.0 mg/dL (0.2-1.0); WBC URINE 2 /hpf (0-5)
[2016-12-13 22:50] LABS: RBC URINE 10 /hpf (0-3)
[2016-12-14] MEDS: Naproxen 500 MG TAB PO SCH ×3 (01:47→21:48)
[2016-12-14] MEDS: Sodium Chloride 0.45% 1,000 ML IV SCH ×3 (03:28→21:47)
[2016-12-14] MEDS: Insulin Lispro (humaLOG) 100 Units/ml Inj SC SCH ×4 (06:39→23:00)
[2016-12-14 06:59] LABS: BASO # 0.1 K/uL (0.0-0.2); BASO % 0.7 % (0.0-2.0); EOS # 0.4 K/uL (0.0-0.7); EOS % 3.4 % (0.0-4.0); LYMPH # 3.2 K/uL (1.0-4.3); LYMPH % 24.4 % (20.0-40.0); MEAN CELL VOLUME 82.9 fl (81.0-99.0); MEAN CORPUSCULAR HEMOGLOBIN 27.5 pg (27.0-31.0); MEAN CORPUSCULAR HGB CONC 33.1 g/dL (33.0-37.0); MEAN PLATELET VOLUME 10.7 fl (7.2-11.7); MONO # 1.1 K/uL (0.0-0.8); NEUT # 8.4 K/uL (1.8-7.0); NEUT % 63.5 % (50.0-75.0); NRBC % 0.1 % (0.0-0.0); RED CELL DISTRIBUTION WIDTH 15.2 % (11.5-14.5); WHITE BLOOD COUNT 13.2 K/uL (4.8-10.8)
[2016-12-14 07:06] LABS: CALCIUM 8.7 mg/dL (8.4-10.2); POTASSIUM 3.6 MMOL/L (3.6-5.0)
[2016-12-14 07:35] LABS: THYROID STIMULATING HORMONE 1.17 mIU/ML (0.46-4.68)
--- NOTE | 2016-12-14 08:49 | RAD ---
HISTORY: Altered mental status COMPARISON: No prior. FINDINGS: LUNGS: The lungs are clear. PLEURA: No significant pleural effusion identified, no pneumothorax apparent. CARDIOVASCULAR: Normal. OSSEOUS STRUCTURES: No significant abnormalities. VISUALIZED UPPER ABDOMEN: Normal. OTHER FINDINGS: None. IMPRESSION: No active pulmonary disease.
--- NOTE | 2016-12-14 11:09 | MRI ---
PROCEDURE: MRI BRAIN WITHOUT CONTRAST HISTORY: MD order COMPARISON: Noncontrast head CT from 12/13/2016 TECHNIQUE: Multiplanar, multisequence MR images of the brain were obtained without intravenous contrast enhancement. FINDINGS: HEMORRHAGE: None DWI: There is focal restricted diffusion in the right posterolateral temporal lobe. BRAIN PARENCHYMA: There are severe chronic microangiopathic changes. There are old infarctions in the right parieto-occipital watershed territory and right basal ganglia. There are also lacunar infarctions in the left basal ganglia. There is cystic encephalomalacia and gliosis in the left posterior inferior cerebellar hemisphere. The midline sagittal structures are normal. There are scattered area of increased magnetic susceptibility in the cerebral hemispheres, thalami and mario suggestive of old petechial hemorrhage. There is also increased magnetic susceptibility in bilateral basal ganglia suggestive of old hemorrhagic infarctions. VENTRICLES: There is moderate age-related global parenchymal volume loss and proportionate enlargement of the ventricles and cortical sulci. CRANIUM: There is normal bone marrow signal pattern. ORBITS: Grossly unremarkable. PARANASAL SINUSES/MASTOIDS: Predominantly clear. VASCULAR SYSTEM: There are normal signal voids in the larger intracranial arteries. OTHER FINDINGS: None. IMPRESSION: 1. Acute right MCA territory infarction involving the posterolateral temporal lobe. 2. Old infarctions in the right MCA [employer] watershed territory, left PICA territory, and right basal ganglia. 3. Severe chronic microangiopathic changes and moderate age-related global parenchymal volume loss. Important findings were discussed with nurse Howe on 12/14/2016 at 10:45 a.m.
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
--- NOTE | 2016-12-14 11:37 | US ---
PROCEDURE: Duplex ultrasound of the carotid and vertebral arteries. HISTORY: MD order, CT head result COMPARISON: None available. TECHNIQUE: Grayscale and duplex Doppler evaluation of the cervical carotid and vertebral arteries were performed. The common carotid, carotid bifurcations and cervical ICA and proximal ECA were evaluated. The vertebral arteries were evaluated for gross patency and direction. FINDINGS: RIGHT CAROTID ARTERIES: Common Carotid Artery: There is soft plaque. Maximal flow velocity of 99.1 cm/s. Carotid Bifurcation: Normal. Internal Carotid Artery:Normal. Maximal flow velocity of 65.1 cm/s. External Carotid Artery (proximal branches): Normal. Maximal flow velocity of 66.0 cm/s. ICA/CCA Ratio: 0.7 LEFT CAROTID ARTERIES: Common Carotid Artery: There is soft plaque. Maximal flow velocity of 99.7 cm/s. Carotid Bifurcation: Normal. Internal Carotid Artery:Normal. Maximal flow velocity of 57.9 cm/s. External Carotid Artery (proximal branches): Normal. Maximal flow velocity of 72.6 cm/s. ICA/CCA Ratio: 0.6 VERTEBRAL ARTERIES: Right Vertebral Artery: Patent. Antegrade flow. Left Vertebral Artery: Patent. Antegrade flow. OTHER FINDINGS: None. IMPRESSION: Soft atherosclerotic plaques in the common carotid arteries. No evidence of hemodynamically significant stenosis.
--- NOTE | 2016-12-14 16:13 | CARD ---
APPROVED REPORT EXAM: Two-dimensional and M-mode echocardiogram with Doppler and color Doppler. Other Information Quality : AverageRhythm : NSR Technically limited study due to body habitus. INDICATION LV Function:SystolicDiastolic 2D DIMENSIONS IVSd1.50 (0.7-1.1cm)LVDd4.36 (3.9-5.9cm) LVOT Diameter2.32 (1.8-2.4cm)PWd1.06 (0.7-1.1cm) IVSs2.03 (0.8-1.2cm)LVDs2.27 (2.5-4.0cm) FS (%) 48.0 %PWs2.01 (0.8-1.2cm) LVEF (%)55.0 (>50%) M-Mode DIMENSIONS Left Atrium (MM)3.35 (2.5-4.0cm)IVSd1.38 (0.7-1.1cm) Aortic Root2.97 (2.2-3.7cm)LVDd4.62 (4.0-5.6cm) Aortic Cusp Exc.1.97 (1.5-2.0cm)PWd1.47 (0.7-1.1cm) IVSs2.38 cmFS (%) 60 % LVDs1.85 (2.0-3.8cm)PWs2.24 cm Mitral Valve MV E Arvgzncr69.7cm/sMV DECEL [id number] A Lbpmyfvg35.9cm/s MV HPH34quT/A ratio1.1MVA (PHT)2.63cm2 TDI Lateral E' Peak V9.94cm/sMedial E' Peak V7.25cm/sE/Lateral E'6.4 E/Medial E'8.8 Tricuspid Valve TR Peak Qvmlvjfg633tt/sRAP [id number] Peak Gr.5mmHg [id number] LEFT VENTRICLE The left ventricle is normal size. There is moderate concentric left ventricular hypertrophy. The left ventricular function is normal. The left ventricular ejection fraction is within the normal range. There is normal LV segmental wall motion. Transmitral Doppler flow pattern is Grade I-abnormal relaxation pattern. RIGHT VENTRICLE The right ventricle is normal size. There is normal right ventricular wall thickness. The right ventricular systolic function is normal. ATRIA The left atrium size is normal. The right atrium size is normal. AORTIC VALVE The aortic valve is not well visualized. No aortic regurgitation is present. There is no aortic valvular stenosis. MITRAL VALVE The mitral valve is not well visualized. There is no mitral valve stenosis. There is no mitral valve regurgitation noted. TRICUSPID VALVE The tricuspid valve is normal in structure and function. There is no tricuspid valve regurgitation noted. PULMONIC VALVE The pulmonary valve is normal in structure and function. There is no pulmonic valvular regurgitation. GREAT VESSELS The aortic root is normal in size. The IVC was not visualized. PERICARDIAL EFFUSION The pericardium appears normal. <Conclusion> Poor Echo window The left ventricle is normal size. There is moderate concentric left ventricular hypertrophy. The left ventricular function is normal. The left ventricular ejection fraction is within the normal range. There is normal LV segmental wall motion. Transmitral Doppler flow pattern is Grade I-abnormal relaxation pattern.
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
--- NOTE | 2016-12-15 00:09 | CARD ---
APPROVED REPORT EKG Measurement Heart [id number] <Conclusion> Normal sinus rhythm Moderate voltage criteria for LVH, may be normal variant Prolonged QT Abnormal ECG
[2016-12-15] MEDS: Naproxen 500 MG TAB PO SCH ×2 (09:17→21:06)
[2016-12-15] MEDS: Insulin Lispro (humaLOG) 100 Units/ml Inj SC SCH ×4 (09:17→22:29)
[2016-12-15 13:46] LABS: HEMATOCRIT 36.3 % (34.0-47.0); MEAN CELL VOLUME 83.7 fl (81.0-99.0); MEAN CORPUSCULAR HEMOGLOBIN 27.8 pg (27.0-31.0); MEAN CORPUSCULAR HGB CONC 33.2 g/dL (33.0-37.0); RED CELL DISTRIBUTION WIDTH 14.7 % (11.5-14.5); WHITE BLOOD COUNT 8.8 K/uL (4.8-10.8)
[2016-12-15 13:55] LABS: CALCIUM 8.9 mg/dL (8.4-10.2); POTASSIUM 3.9 MMOL/L (3.6-5.0)
--- NOTE | 2016-12-15 23:44 | CP.PCM.PN ---
Subjective - Date & Time of Evaluation Date of Evaluation: 12/15/16 Time of Evaluation: 18:30 - Subjective Subjective: Seen and examined at the bed side. Unable to ambulate. Objective - Vital Signs/Intake and Output Vital Signs (last 24 hours): Temp Pulse Resp BP Pulse Ox 98.2 F 83 20 175/94 H 98 12/15/16 19:34 12/15/16 19:34 12/15/16 19:34 12/15/16 19:34 12/15/16 19:34 - Medications Medications: Current Medications Aspirin (Aspirin Chewable) 81 mg PO DAILY [facility] Last Admin: 12/15/16 09:16 Dose: 81 mg Atorvastatin Calcium (Lipitor) 80 mg PO HS [facility] Last Admin: 12/15/16 21:07 Dose: 80 mg Clopidogrel Bisulfate (Plavix) 75 mg PO DAILY [facility] Last Admin: 12/15/16 09:17 Dose: 75 mg Heparin Sodium (Porcine) (Heparin) 5,000 units SC Q8 [facility] PRN Reason: Protocol Last Admin: 12/15/16 16:47 Dose: 5,000 units Insulin Human Lispro (Humalog) 0 units SC ACCU-CHECK [facility] PRN Reason: Protocol Last Admin: 12/15/16 22:29 Dose: Not Given Naproxen (Naproxen) 500 mg PO Q12 [facility] Last Admin: 12/15/16 21:06 Dose: 500 mg - Labs Labs: 12/15/16 13:39 12/15/16 13:39 - Constitutional Appears: Well - Head Exam Head Exam: ATRAUMATIC, NORMAL INSPECTION, NORMOCEPHALIC - Eye Exam Eye Exam: EOMI, Normal appearance, PERRL Pupil Exam: NORMAL ACCOMODATION, PERRL - ENT Exam ENT Exam: Mucous Membranes Moist, Normal Exam - Neck Exam Neck Exam: Full ROM, Normal Inspection. absent: Lymphadenopathy - Respiratory Exam Respiratory Exam: Clear to Ausculation Bilateral, NORMAL BREATHING PATTERN - Cardiovascular Exam Cardiovascular Exam: REGULAR RHYTHM, +S1, +S2. absent: Murmur - GI/Abdominal Exam GI & Abdominal Exam: Soft, Normal Bowel Sounds. absent: Tenderness - Extremities Exam Extremities Exam: Full ROM, Normal Capillary Refill, Normal Inspection. absent : Joint Swelling, Pedal Edema - Back Exam Back Exam: NORMAL INSPECTION - Neurological Exam Neurological Exam: Abnormal Gait, Alert, Awake Neuro motor strength exam: Left Upper Extremity: 2/1, Right Upper Extremity: 4, Left Lower Extremity: 2/1, Right Lower Extremity: 4 - Psychiatric Exam Psychiatric exam: Flat Affect, Normal Affect, Normal Mood - Skin Skin Exam: Dry, Intact, Normal Color, Warm - Additional Findings Additional findings: Brain MRI: IMPRESSION: 1. Acute right MCA territory infarction involving the posterolateral temporal lobe. 2. 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 3. Severe chronic microangiopathic changes and moderate age-related global parenchymal volume loss. TTE: LVH; Normal EF. No Thrombus. B/L Carotid Doppler: No significant Stenosis Assessment and Plan (1) Altered mental status Assessment & Plan: ACute Right MCA Ischemic CVA ASA/statin PT/OT ACute Vs ARABELLA Neurocheck q4hrs Neurology consulted Status: Acute (2) Diabetes Status: Chronic (3) Hypertension Status: Chronic
[2016-12-16 04:53] VITALS: PULSE 73
[2016-12-16 07:56] VITALS: BP 171/98; RESP 18; TEMP 98; O2SAT 99
[2016-12-16] MEDS: Naproxen 500 MG TAB PO SCH (09:10)
[2016-12-16] MEDS: Insulin Lispro (humaLOG) 100 Units/ml Inj SC SCH (09:11)
--- NOTE | 2016-12-16 15:34 | CP.PCM.DIS ---
Provider - Provider Date of Admission: 12/13/16 23:19 Attending physician: Robe Gallego MD Time Spent in preparation of Discharge (in minutes): 30 Diagnosis - Discharge Diagnosis (1) Acute right MCA stroke Status: Acute (2) Altered mental status Status: Acute (3) History of CVA (cerebrovascular accident) without residual deficits Status: Chronic (4) Hypertension Status: Chronic (5) Diabetes Status: Chronic Hospital Course - Lab Results Lab Results: Micro Results 12/13/16 23:20 Blood Blood Culture - Preliminary NO GROWTH AFTER 48 HOURS Most Recent Lab Values WBC 8.8 K/uL (4.8-10.8) 12/15/16 13:39 RBC 4.34 Mil/uL (3.80-5.20) 12/15/16 13:39 Hgb 12.1 g/dL (12.0-16.0) 12/15/16 13:39 Hct 36.3 % (34.0-47.0) 12/15/16 13:39 MCV 83.7 fl (81.0-99.0) 12/15/16 13:39 MCH 27.8 pg (27.0-31.0) 12/15/16 13:39 MCHC 33.2 g/dL (33.0-37.0) 12/15/16 13:39 RDW 14.7 % (11.5-14.5) H 12/15/16 13:39 Plt Count 188 K/uL (130-400) 12/15/16 13:39 MPV 10.7 fl (7.2-11.7) 12/14/16 05:00 Neut % (Auto) 63.5 % (50.0-75.0) 12/14/16 05:00 Lymph % (Auto) 24.4 % (20.0-40.0) 12/14/16 05:00 [place] % (Auto) 8.0 % (0.0-10.0) 12/14/16 05:00 Eos % (Auto) 3.4 % (0.0-4.0) 12/14/16 05:00 Baso % (Auto) 0.7 % (0.0-2.0) 12/14/16 05:00 Neut # 8.4 K/uL (1.8-7.0) H 12/14/16 05:00 Lymph # 3.2 K/uL (1.0-4.3) 12/14/16 05:00 [place] # 1.1 K/uL (0.0-0.8) H 12/14/16 05:00 Eos # 0.4 K/uL (0.0-0.7) 12/14/16 05:00 Baso # 0.1 K/uL (0.0-0.2) 12/14/16 05:00 pCO2 43 mm/Hg (35-45) 12/13/16 21:50 pO2 58 mm/Hg (80-100) L 12/13/16 21:50 HCO3 27.6 mmol/L (21-28) 12/13/16 21:50 ABG pH 7.43 (7.35-7.45) 12/13/16 21:50 ABG Total CO2 29.8 mmol/L (22-28) H 12/13/16 21:50 ABG O2 Saturation 94.1 % (95-98) L 12/13/16 21:50 ABG Base Excess 3.7 mmol/L (-2.0-3.0) H 12/13/16 21:50 Rashawn Test Yes 12/13/16 21:50 ABG Potassium 3.5 mmol/L (3.6-5.2) L 12/13/16 21:50 A-a O2 Difference 38.0 mm/Hg 12/13/16 21:50 Sodium 137.0 mmol/L (132-148) 12/13/16 21:50 Chloride 98.0 mmol/L (98-107) 12/13/16 21:50 Glucose 458 mg/dL (65-105) H* 12/13/16 21:50 Lactate 2.0 mmol/L (0.7-2.1) 12/13/16 21:50 FiO2 21.0 % 12/13/16 21:50 Crit Value Called To Kamila tyler 12/13/16 21:50 Crit Value Called By 23 12/13/16 21:50 Crit Value Read Back Y 12/13/16 21:50 Blood Gas Notified Time 2210 12/13/16 21:50 Sodium 136 mmol/l (132-148) 12/15/16 13:39 Potassium 3.9 MMOL/L (3.6-5.0) 12/15/16 13:39 Chloride 102 mmol/L (98-107) 12/15/16 13:39 Carbon Dioxide 24 mmol/L (22-30) 12/15/16 13:39 Anion Gap 14 (10-20) 12/15/16 13:39 BUN 31 mg/dl (7-17) H 12/15/16 13:39 Creatinine 1.4 mg/dL (0.7-1.2) H 12/15/16 13:39 Est GFR ( Amer) 48 12/15/16 13:39 Est GFR (Non-Af Amer) 40 12/15/16 13:39 POC Glucose (mg/dL) 341 mg/dL (65-110) H 12/16/16 11:02 Random Glucose 284 mg/dL (65-105) H 12/15/16 13:39 Hemoglobin A1c 9.5 % (4.2-6.5) H 12/14/16 05:00 Calcium 8.9 mg/dL (8.4-10.2) 12/15/16 13:39 Total Bilirubin 0.7 mg/dl (0.2-1.3) 12/13/16 20:50 AST 19 U/L (14-36) 12/13/16 20:50 ALT 24 U/L (9-52) 12/13/16 20:50 Alkaline Phosphatase 112 U/L (38-126) 12/13/16 20:50 Total Creatine Kinase 100 U/L (30-135) 12/13/16 20:50 Total Protein 8.7 G/DL (6.3-8.2) H 12/13/16 20:50 Albumin 4.3 g/dL (3.5-5.0) 12/13/16 20:50 Globulin 4.4 gm/dL (2.2-3.9) H 12/13/16 20:50 Albumin/Globulin Ratio 1.0 (1.0-2.1) 12/13/16 20:50 Triglycerides 150 mg/DL (0-149) H 12/14/16 05:00 Cholesterol 250 mg/dL (0-199) H 12/14/16 05:00 LDL Cholesterol Direct 172 mg/dL (0-129) H 12/14/16 05:00 HDL Cholesterol 48 MG/DL (30-70) 12/14/16 05:00 TSH 3rd Generation 1.17 mIU/ML (0.46-4.68) 12/14/16 05:00 Arterial Blood Potassium 3.5 mmol/L (3.6-5.2) L 12/13/16 21:50 Urine Color Yellow (YELLOW) 12/13/16 22:30 Urine Clarity Slighty-cloudy (Clear) 12/13/16 22:30 Urine pH 6.0 (5.0-8.0) 12/13/16 22:30 Ur Specific [place] 1.015 (1.003-1.030) 12/13/16 22:30 Urine Protein 100 mg/dL (NEGATIVE) 12/13/16 22:30 Urine Glucose (UA) >=500 mg/dL (Normal) 12/13/16 22:30 Urine Ketones Negative mg/dL (NEGATIVE) 12/13/16 22:30 Urine Blood Small (NEGATIVE) 12/13/16 22:30 Urine Nitrate Negative (NEGATIVE) 12/13/16 22:30 Urine Bilirubin Negative (NEGATIVE) 12/13/16 22:30 Urine Urobilinogen 0.2-1.0 mg/dL (0.2-1.0) 12/13/16 22:30 Ur Leukocyte Esterase Neg Christel/uL (Negative) 12/13/16 22:30 Urine RBC (Auto) 10 /hpf (0-3) H 12/13/16 22:30 Urine Microscopic WBC 2 /hpf (0-5) 12/13/16 22:30 Ur Squamous Epith Cells 3 /hpf (0-5) 12/13/16 22:30 Urine Bacteria Rare (<OCC) 12/13/16 22:30 Hyaline Casts 2 /hpf (0-2) 12/13/16 22:30 Salicylates < 1.0 mg/dl 12/13/16 20:50 Urine Opiates Screen Negative (NEGATIVE) 12/13/16 20:39 Urine Methadone Screen Negative (NEGATIVE) 12/13/16 20:39 Acetaminophen < 10.0 ug/ml (10.0-30.0) L 12/13/16 20:50 Ur Barbiturates Screen Negative (NEGATIVE) 12/13/16 20:39 Ur Phencyclidine Scrn Negative (NEGATIVE) 12/13/16 20:39 Ur Amphetamines Screen Negative (NEGATIVE) 12/13/16 20:39 U Benzodiazepines Scrn Negative (NEGATIVE) 12/13/16 20:39 U Oth Cocaine Metabols Negative (NEGATIVE) 12/13/16 20:39 U Cannabinoids Screen Negative (NEGATIVE) 12/13/16 20:39 Alcohol, Quantitative < 10 mg/dl (0-10) 12/13/16 20:50 Discharge Exam - Head Exam Head Exam: ATRAUMATIC, NORMAL INSPECTION, NORMOCEPHALIC Discharge Plan - Follow Up Plan Condition: FAIR Disposition: TRANSF TO SNF
--- NOTE | 2016-12-19 08:46 | EEG ---
INTRODUCTION: This is a digitally recorded EEG monitoring using standard EEG montages. Background rhythm of the EEG shows a background activity of 8 Hz alpha activity in parietooccipital region. The EEG activity is bilaterally symmetrical and synchronized. There is attenuation of the background activity on eye opening. No sleep recording was noted. Abnormal potentials, no spike, sharp waves, or focal plane was seen. Photic stimulation and hyperventilation: Photic stimulation did not reveal any abnormality. Hyperventilation was not performed. IMPRESSION: Normal EEG. No epileptiform activity seen in this EEG recording. Caty Cantrell MD
== END 2016-12-16 12:06 | DRG 533 ==
LOC: H.ER 19:11 → MERGE 23:19 → H.ERHOLD 23:19 → H.TEL 12-14 01:28
PROVIDERS: ADMIT Internal Medicine; ATTEND Internal Medicine
DX: I63.8 Other cerebral infarction (principal); N17.9 Acute kidney failure, unspecified; E11.65 Type 2 diabetes mellitus with hyperglycemia; R41.82 Altered mental status, unspecified; I10 Essential (primary) hypertension; G89.29 Other chronic pain; F32.9 Major depressive disorder, single episode, unspecified; Z87.891 Personal history of nicotine dependence; Z86.73 Personal history of transient ischemic attack (TIA), and cerebral infarction without residual deficits; Z79.02 Long term (current) use of antithrombotics/antiplatelets

== ENCOUNTER 2017-01-20 16:45 | Inpatient (IN) | payer MEDICAID ==
[2017-01-20 16:46] VITALS: BMI 38.9
[2017-01-20] MEDS ORDERED: Sodium Chloride 0.9% 1,000 ML IV STA (17:20)
--- NOTE | 2017-01-20 17:36 | ED PDOC ---
HPI:Nausea, Vomiting, Diarrhea Time Seen by Provider: 01/20/17 17:04 Chief Complaint (Nursing): Weakness/Neurological Deficit History Per: Patient (states that she has been having vomiting and difficulty swallowing for about 2 weeks. She also has developed a right sided facial weakness that was noticed 2 weeks ago but has not been evaluated. She denies fever or chills. She is on meds for hypertension, DM. She is morbidly obse), Family History/Exam Limitations: no limitations Onset/Duration Of Symptoms: Gradual Current Symptoms Are (Timing): Still Present Associated Symptoms: Vomiting, Back Pain. denies: Fever, Chills, Diarrhea, Loss Of Appetite, Chest Pain, Constipation, Urinary Symptoms Exacerbating Factors: None Alleviating Factors: None Past Medical History Reviewed: Historical Data, Nursing Documentation, Vital Signs Vital Signs: Last Vital Signs Temp 98 F 01/20/17 16:48 Pulse 75 01/20/17 16:48 Resp 18 01/20/17 16:48 BP 158/97 H 01/20/17 16:48 Pulse Ox 100 01/20/17 16:48 - Medical History PMH: Arthritis, CVA, Depression, Diabetes (type I), HTN Denies: Chronic Kidney Disease - Surgical History Surgical History: (x4) - Family History Family History: States: Unknown Family Hx - Living Arrangements Living Arrangements: With Family - Home Medications Home Medications: Ambulatory Orders Medication Instructions Recorded Insulin Lispro [humALOG] 10 unit SC TID 10/04/16 PARoxetine [Paxil] 20 mg PO QAM 10/04/16 Pravastatin Sodium [Pravachol] 20 mg PO DAILY 10/04/16 metFORMIN [glucOPHAGE] 850 mg PO BID 10/04/16 Acetaminophen [Tylenol 325mg tab] 650 mg PO Q4 PRN tab 10/10/16 Apixaban [Eliquis] 5 mg PO BID tab 10/10/16 Insulin Detemir [Levemir] 40 units SC HS vial 10/10/16 Lisinopril [Zestril] 20 mg PO DAILY tab 10/10/16 Nitrofurantoin Macrocrystals 100 mg PO Q12 7 Days cap 10/10/16 [Macrobid] Ondansetron [Zofran Inj] 4 mg IVP Q4 PRN vial 10/10/16 amLODIPine [Norvasc] 10 mg PO DAILY tab 10/10/16 Cyclobenzaprine [Cyclobenzaprine 10 mg PO TID PRN #15 tab 11/23/16 HCl] Aspirin [Aspirin Chewable] 81 mg PO DAILY 12/16/16 Atorvastatin [Lipitor] 80 mg PO HS tab 12/16/16 Clopidogrel [Plavix] 75 mg PO DAILY tab 12/16/16 Heparin 5,000 units SC Q8 vial 12/16/16 Naproxen 500 mg PO Q12 tab 12/16/16 - Allergies Allergies/Adverse Reactions: Allergies Allergy/AdvReac Type Severity Reaction Status Date / Time No Known Allergies Allergy Unverified 01/28/14 17:46 Review of Systems ROS Statement: Except As Marked, All Systems Reviewed And Found Negative Constitutional: Negative for: Fever, Chills Cardiovascular: Negative for: Chest Pain Gastrointestinal: Positive for: Nausea, Vomiting. Negative for: Abdominal Pain , Diarrhea, Constipation Genitourinary Female: Negative for: Dysuria Physical Exam - Reviewed Nursing Documentation Reviewed: Yes Vital Signs Reviewed: Yes - Physical Exam Appears: Positive for: Well, Non-toxic, No Acute Distress Head Exam: Positive for: ATRAUMATIC, NORMAL INSPECTION, NORMOCEPHALIC Skin: Positive for: Normal Color, Warm, DRY Eye Exam: Positive for: Normal appearance, EOMI, PERRL, Other (right sided facial weakness) ENT: Positive for: Normal ENT Inspection Neck: Positive for: Normal, Painless ROM Cardiovascular/Chest: Positive for: Regular Rate, Rhythm Respiratory: Positive for: CNT, Normal Breath Sounds Gastrointestinal/Abdominal: Positive for: Normal Exam, Bowel Sounds, Soft Back: Positive for: Normal Inspection Extremity: Positive for: Normal ROM Neurologic/Psych: Positive for: Alert, Oriented - Laboratory Results Result Diagrams: 01/20/17 17:50 01/20/17 17:50 - ECG O2 Sat by Pulse Oximetry: 100 Disposition - Clinical Impression Clinical Impression: Vomiting, Chronic back pain - Patient ED Disposition Is Patient to be Admitted: Transfer of Care - Disposition Disposition Time: 19:00 Condition: STABLE Patient Signed Over To: Giacomo Sanchez Present On Arrival: None
[2017-01-20 18:16] LABS: BASO # 0.1 K/uL (0.0-0.2); BASO % 1.1 % (0.0-2.0); EOS # 0.3 K/uL (0.0-0.7); EOS % 4.2 % (0.0-4.0); HEMATOCRIT 41.9 % (34.0-47.0); LYMPH # 2.9 K/uL (1.0-4.3); LYMPH % 38.8 % (20.0-40.0); MEAN CORPUSCULAR HEMOGLOBIN 27.1 pg (27.0-31.0); MEAN CORPUSCULAR HGB CONC 31.9 g/dL (33.0-37.0); MEAN PLATELET VOLUME 10.7 fl (7.2-11.7); MONO # 0.7 K/uL (0.0-0.8); MONO % 9.9 % (0.0-10.0); NEUT # 3.5 K/uL (1.8-7.0); NRBC % 0.1 % (0.0-0.0); RED CELL DISTRIBUTION WIDTH 15.4 % (11.5-14.5); WHITE BLOOD COUNT 7.5 K/uL (4.8-10.8)
[2017-01-20 18:17] LABS: ALB/GLOB RATIO 0.9 (1.0-2.1); ALKALINE PHOSPHATASE 93 U/L (38-126); ALT/SGPT 15 U/L (9-52); AST/SGOT 21 U/L (14-36); BILIRUBIN,TOTAL 0.5 mg/dl (0.2-1.3); BLOOD UREA NITROGEN 25 mg/dl (7-17); CALCIUM 9.8 mg/dL (8.4-10.2); CARBON DIOXIDE 19 mmol/L (22-30); CHLORIDE 103 mmol/L (98-107); GFR AFRICAN-AMERICAN > 60; GLUCOSE,RANDOM 281 mg/dL (65-105); LIPASE 667 U/L (23-300); SODIUM 137 mmol/l (132-148); TOTAL PROTEIN 8.1 G/DL (6.3-8.2)
[2017-01-20 18:19] LABS: POTASSIUM 4.5 MMOL/L (3.6-5.0)
--- NOTE | 2017-01-20 19:41 | ED PDOC ---
- Laboratory Results Result Diagrams: 01/20/17 17:50 01/20/17 17:50 - ECG O2 Sat by Pulse Oximetry: 100 (RA) Pulse Ox Interpretation: Normal Medical Decision Making Medical Decision Making: Time: 17:14 Initial Plan: CT Head W/O Contrast EKG Labs Urine Dipstick Urine Sodium Chloride 0.9% 1,000mls/hr Famotidine 20mg IVP Ketorolac 30mg IVP Zofran Inj 4mg IVP IV Insertion Glucose, Blood, POC 19:00 Patient signed out to me by Dr. Reza 19:36 Cyclobenzaprine 10mg PO Acetaminophen 650mg PO CT Pancreatic Protocol CT Abdomen/Pelvis IV Contrast (Cancelled) 20:20 CT Head Results FINDINGS: Brain: There is cerebral atrophy with compensatory dilation of the ventricles. Periventricular white matter hypoattenuation most likely reflects chronic small vessel ischemic change. Encephalomalacia in the left cerebellar in the right subinsular region. No hemorrhage. Ventricles: See above. Bones/joints: Unremarkable. No acute fracture. Soft tissues: Unremarkable. Sinuses: Unremarkable as visualized. No acute sinusitis. Mastoid air cells: Unremarkable as visualized. No mastoid effusion. IMPRESSION: No acute intracranial findings. No significant change compared to 10/04/2016. IMPRESSION: 1. No CT evidence of acute pancreatitis or other acute finding in the abdomen or pelvis. 2. Punctate nonobstructing left kidney upper pole calculus. Pt feeling much better and tolerating PO. Will d/c home with return precautions. Advised patient to f/u w/ PMD on Sunday. Scribe Attestation: Documented by Edward Tanner, acting as a scribe for Giacomo Sanchez MD Provider Scribe Attestation: All medical record entries made by the Scribe were at my direction and personally dictated by me. I have reviewed the chart and agree that the record accurately reflects my personal performance of the history, physical exam, medical decision making, and the department course for this patient. I have also personally directed, reviewed, and agree with the discharge instructions and disposition. Disposition - Clinical Impression Clinical Impression: Vomiting, Chronic back pain - POA Present On Arrival: None - Disposition Referrals: Ivana Valverde MD [Family Provider] - Disposition: Routine/Home Disposition Time: 23:00 Condition: STABLE Prescriptions: Cyclobenzaprine [Cyclobenzaprine HCl] 10 mg PO BID #15 tab Famotidine [Pepcid] 20 mg PO BID #20 tab Instructions: Chronic Back Pain (ED), Epigastric Pain (ED) Forms: [facility] [employer] (Citizen [place])
[2017-01-20] MEDS ORDERED: Iohexol 300 100 ML IJ ONE (21:04)
[2017-01-20] MEDS ORDERED: Sodium Chloride 0.9% 50 ML IV ONE (21:04)
--- NOTE | 2017-01-21 08:19 | CT ---
PROCEDURE: CT HEAD WITHOUT CONTRAST. HISTORY: headache COMPARISON: Noncontrast head CT performed 10/04/16, brain MRI without contrast performed 10/06/16 TECHNIQUE: Axial computed tomography images were obtained through the head/brain without intravenous contrast. Radiation dose: Total exam DLP = 1817.26 mGy-cm. This CT exam was performed using one or more of the following dose reduction techniques: Automated exposure control, adjustment of the mA and/or kV according to patient size, and/or use of iterative reconstruction technique. FINDINGS: HEMORRHAGE: No intracranial hemorrhage. BRAIN: Diffuse atrophy with prominence of the ventricles and sulci noted. Intracranial atherosclerosis. No mass effect or edema. Moderate scattered periventricular and subcortical white matter hypodensities, which are nonspecific, but often seen with chronic microvascular ischemic disease. Left cerebellar and right subinsular/basal ganglia encephalomalacia. Scattered probable bilateral lacunar infarcts. Please note that MRI with diffusion imaging is more sensitive in the detection of acute ischemic event. VENTRICLES: Ex vacuo dilatation, right lateral frontal bone. No hydrocephalus. CALVARIUM: Unremarkable. PARANASAL SINUSES: Unremarkable as visualized. No significant inflammatory changes. MASTOID AIR CELLS: Unremarkable as visualized. No inflammatory changes. OTHER FINDINGS: None. IMPRESSION: Moderate nonspecific white matter changes as above. Left cerebellar and right subinsular/basal ganglia encephalomalacia. Probable bilateral tiny lacunar infarcts. Preliminary impression was provided by virtual radiologic.
[2017-01-21] MEDS: Pravastatin Sodium 20 MG TAB PO SCH (08:42)
--- NOTE | 2017-01-21 11:01 | CP.PCM.HP ---
History of Present Illness - History of Present Illness History of Present Illness: CC: N/V and FAmily unable to take care of her HPI: Patient (states that she has been having vomiting and difficulty swallowing for about 2 weeks. She also has developed a right sided facial weakness that was noticed 2 weeks ago but has not been evaluated. She denies fever or chills. She is on meds for hypertension, DM. She is morbidly obse), Family. PAtient was treated in the ER and was to be discharged but unable due to family refusal to take care of her. Prior Recurrent CVA, and Wheel chair bound, and dependent of PArtailly ADL/IADL. Accepted patient for as a Social Hold until placed. Present on Admission - Present on Admission Any Indicators Present on Admission: No Review of Systems - Review of Systems All systems: reviewed and no additional remarkable complaints except Past Patient History - Infectious Disease Hx of Infectious Diseases: None - Past Medical History & Family History Past Medical History?: Yes Past Family History: Reviewed and not pertinent - Past Social History Smoking Status: Former Smoker - CARDIAC Hx Hypertension: Yes - PULMONARY Hx Respiratory Disorders: No - NEUROLOGICAL Hx Neurological Disorder: Yes HX Cerebrovascular Accident: Yes - HEENT Hx HEENT Problems: No - RENAL Hx Chronic Kidney Disease: No - ENDOCRINE/METABOLIC Hx Diabetes Mellitus Type 2: Yes - HEMATOLOGICAL/ONCOLOGICAL Hx AIDS: No Hx Human Immunodeficiency Virus (HIV): No Other/Comment: lupus - INTEGUMENTARY Hx Dermatological Problems: No - MUSCULOSKELETAL/RHEUMATOLOGICAL Hx Arthritis: Yes - GASTROINTESTINAL Hx Gastrointestinal Disorders: No - GENITOURINARY/GYNECOLOGICAL Hx Genitourinary Disorders: No - PSYCHIATRIC Hx Depression: Yes - SURGICAL HISTORY Hx Section: Yes Hx Tubal Ligation: Yes - ANESTHESIA Hx Anesthesia: Yes Hx Anesthesia Reactions: No Hx Malignant Hyperthermia: No Meds Allergies/Adverse Reactions: Allergies Allergy/AdvReac Type Severity Reaction Status Date / Time No Known Allergies Allergy Unverified 01/28/14 17:46 Physical Exam - Constitutional Appears: Well, No Acute Distress - Head Exam Head Exam: ATRAUMATIC, NORMAL INSPECTION, NORMOCEPHALIC - Eye Exam Eye Exam: EOMI, Normal appearance, PERRL Pupil Exam: NORMAL ACCOMODATION, PERRL - ENT Exam ENT Exam: Mucous Membranes Moist, Normal Exam - Neck Exam Neck exam: Positive for: Normal Inspection - Respiratory Exam Respiratory Exam: Clear to Auscultation Bilateral, NORMAL BREATHING PATTERN - Cardiovascular Exam Cardiovascular Exam: REGULAR RHYTHM, +S1, +S2 - GI/Abdominal Exam GI & Abdominal Exam: Normal Bowel Sounds, Soft. absent: Tenderness - Extremities Exam Extremities exam: Positive for: full ROM, normal capillary refill, normal inspection - Back Exam Back exam: NORMAL INSPECTION - Neurological Exam Neurological exam: Alert, Motor Sensory Deficit Additional comments: Wheelchair Dependent. - Psychiatric Exam Psychiatric exam: Normal Affect, Normal Mood - Skin Skin Exam: Dry, Intact, Normal Color, Warm Results - Vital Signs Recent Vital Signs: Last Vital Signs Temp 98.1 F 01/21/17 08:42 Pulse 66 01/21/17 08:42 Resp 20 01/21/17 08:42 BP 150/86 01/21/17 01:35 Pulse Ox 100 01/21/17 08:42 - Labs Result Diagrams: 01/22/17 13:40 01/23/17 11:40 Labs: Laboratory Results - last 24 hr 01/20/17 01/20/17 01/20/17 16:56 17:50 17:50 WBC 7.5 RBC 4.93 Hgb 13.3 Hct 41.9 MCV 85.0 MCH 27.1 MCHC 31.9 L RDW 15.4 H Plt Count 174 MPV 10.7 Neut % (Auto) 46.0 L Lymph % (Auto) 38.8 [place] % (Auto) 9.9 Eos % (Auto) 4.2 H Baso % (Auto) 1.1 Neut # 3.5 Lymph # 2.9 [place] # 0.7 Eos # 0.3 Baso # 0.1 Sodium 137 Potassium 4.5 Chloride 103 Carbon Dioxide 19 L Anion Gap 20 BUN 25 H Creatinine 1.0 Est GFR ( Amer) > 60 Est GFR (Non-Af Amer) 59 POC Glucose (mg/dL) 309 H Random Glucose 281 H Calcium 9.8 Total Bilirubin 0.5 AST 21 ALT 15 Alkaline Phosphatase 93 Total Protein 8.1 Albumin 3.8 Globulin 4.3 H Albumin/Globulin Ratio 0.9 L Lipase 667 H 01/21/17 06:14 WBC RBC Hgb Hct MCV MCH MCHC RDW Plt Count MPV Neut % (Auto) Lymph % (Auto) [place] % (Auto) Eos % (Auto) Baso % (Auto) Neut # Lymph # [place] # Eos # Baso # Sodium Potassium Chloride Carbon Dioxide Anion Gap BUN Creatinine Est GFR ( Amer) Est GFR (Non-Af Amer) POC Glucose (mg/dL) 206 H Random Glucose Calcium Total Bilirubin AST ALT Alkaline Phosphatase Total Protein Albumin Globulin Albumin/Globulin Ratio Lipase Assessment & Plan (1) CVA (cerebral vascular accident) Status: Acute (2) Vomiting Status: Acute (3) Diabetes Status: Chronic (4) Hypertension Status: Chronic
[2017-01-21] MEDS: Naproxen 500 MG TAB PO SCH ×2 (11:28→21:38)
--- NOTE | 2017-01-21 12:11 | CT ---
Pancreatic protocol CT Indication: elevated lipase, r/o pancreatitis Technique: Contiguous axial images of the abdomen and pelvis without & with IV contrast utilizing liver protocol. Coronal and Sagittal reformats generated and reviewed. This CT exam was performed using 1 or more of the falling dose reduction techniques: Automated exposure control, adjustment of the MAA and/or kV according to patient size, and/or use of iterative reconstruction technique. Contrast: 89.8 mL Omnipaque 300 IV. Oral contrast was not administered. Radiation dose: Total exam DLP = 3271.90 MGy-cm. Comparison: CT abdomen and pelvis without contrast performed 11/23/16 Findings: There is no visible consolidation, pleural effusion, or pneumothorax. Hepatomegaly. Punctate nonobstructing left upper pole renal calculus. The spleen, right kidney, pancreas, adrenal glands, and gallbladder appear unremarkable. The stomach is nondistended. The bowel loops appear within normal limits of caliber without evidence of intestinal obstruction. Small bowel wall thickening within the left upper quadrant ; correlate clinically for possibility of enteritis. There is no definite free air. The appendix appears within normal limits of caliber. No secondary signs of acute appendicitis. Uterus is present. Probable small bilateral ovarian cysts measuring up to 1.5 cm on the left. The urinary bladder appears unremarkable. Small fat containing umbilical hernia. Degenerative changes of the spine. Impression: No CT evidence of acute pancreatitis. Recommend correlation with amylase and lipase. Punctate nonobstructing left upper pole renal calculus. Hepatomegaly. Probable small bilateral ovarian cysts. Small bowel wall thickening within the left upper quadrant ; correlate clinically for possibility of enteritis. Additional findings as above. Preliminary impression was provided by virtual radiologic. Study marked for PA review.
--- NOTE | 2017-01-21 19:51 | CARD ---
APPROVED REPORT EKG Measurement Heart [id number] <Conclusion> Normal sinus rhythm Voltage criteria for left ventricular hypertrophy Abnormal ECG
[2017-01-21] MEDS: Insulin Detemir 100 Units/ml Inj SC SCH (21:45)
[2017-01-22] MEDS: Naproxen 500 MG TAB PO SCH ×2 (09:22→21:42)
[2017-01-22] MEDS: Pravastatin Sodium 20 MG TAB PO SCH (09:28)
[2017-01-22 13:45] LABS: MEAN CELL VOLUME 82.9 fl (81.0-99.0); MEAN CORPUSCULAR HEMOGLOBIN 27.5 pg (27.0-31.0); MEAN CORPUSCULAR HGB CONC 33.2 g/dL (33.0-37.0); RED CELL DISTRIBUTION WIDTH 14.7 % (11.5-14.5); WHITE BLOOD COUNT 7.8 K/uL (4.8-10.8)
[2017-01-22 14:12] LABS: ALB/GLOB RATIO 0.9 (1.0-2.1); ALKALINE PHOSPHATASE 108 U/L (38-126); ALT/SGPT 19 U/L (9-52); AST/SGOT 14 U/L (14-36); BILIRUBIN,TOTAL 0.2 mg/dl (0.2-1.3); BLOOD UREA NITROGEN 18 mg/dl (7-17); CALCIUM 8.9 mg/dL (8.4-10.2); CARBON DIOXIDE 26 mmol/L (22-30); CHLORIDE 102 mmol/L (98-107); GFR AFRICAN-AMERICAN > 60; GLUCOSE,RANDOM 175 mg/dL (65-105); POTASSIUM 3.7 MMOL/L (3.6-5.0); SODIUM 140 mmol/l (132-148); TOTAL PROTEIN 7.4 G/DL (6.3-8.2)
[2017-01-22 14:20] LABS: LIPASE 2429 U/L (23-300)
[2017-01-22] MEDS: Sodium Chloride 0.45% 1,000 ML IV SCH (17:00)
[2017-01-22] MEDS: Insulin Detemir 100 Units/ml Inj SC SCH (22:14)
--- NOTE | 2017-01-22 23:11 | CP.PCM.PN ---
Subjective - Date & Time of Evaluation Date of Evaluation: 01/22/17 Time of Evaluation: 14:35 - Subjective Subjective: Seen and examined at the bed side. No complaint. Awaiting placement. Objective - Vital Signs/Intake and Output Vital Signs (last 24 hours): Temp Pulse Resp BP Pulse Ox 97.7 F 81 17 148/83 95 01/22/17 15:51 01/22/17 15:51 01/22/17 15:51 01/22/17 15:51 01/22/17 15:51 - Medications Medications: Current Medications Acetaminophen (Tylenol 325mg Tab) 650 mg PO Q4 PRN PRN Reason: Headache Amlodipine Besylate (Norvasc) 10 mg PO DAILY [facility] Last Admin: 01/22/17 09:25 Dose: 10 mg Apixaban (Eliquis) 5 mg PO BID [facility] PRN Reason: Protocol Last Admin: 01/22/17 18:34 Dose: 5 mg Aspirin (Aspirin Chewable) 81 mg PO DAILY [facility] Last Admin: 01/22/17 09:24 Dose: 81 mg Atorvastatin Calcium (Lipitor) 80 mg PO HS [facility] Last Admin: 01/22/17 21:41 Dose: 80 mg Clopidogrel Bisulfate (Plavix) 75 mg PO DAILY [facility] Last Admin: 01/22/17 09:26 Dose: 75 mg Cyclobenzaprine HCl (Flexeril) 5 mg PO TID PRN PRN Reason: Muscle spasm Sodium Chloride (Sodium Chloride 0.45%) 1,000 mls @ 100 mls/hr IV .Q10H [facility] Stop: 01/23/17 14:37 Last Admin: 01/22/17 17:00 Dose: 100 mls/hr Insulin Detemir (Levemir) 40 units SC [facility] Last Admin: 01/22/17 22:14 Dose: 40 units Lisinopril (Zestril) 20 mg PO DAILY [facility] Last Admin: 01/22/17 09:22 Dose: 20 mg Metformin HCl (Glucophage) 850 mg PO BID [facility] Last Admin: 01/22/17 18:34 Dose: 850 mg Naproxen (Naproxen) 500 mg PO Q12 [facility] Last Admin: 01/22/17 21:42 Dose: 500 mg Ondansetron HCl (Zofran Inj) 4 mg IVP Q4 PRN PRN Reason: Nausea/Vomiting Parox[facility] ([facility]) [facility] [place] Admin: 01/22/17 09:22 Dose: 20 mg Pravastatin Sodium (Pravachol) 20 mg PO DAILY [facility] Last Admin: 01/22/17 09:28 Dose: 20 mg - Labs Labs: 01/22/17 13:40 01/22/17 13:40
[2017-01-23 00:41] VITALS: O2SAT 97
[2017-01-23] MEDS: Sodium Chloride 0.45% 1,000 ML IV SCH ×2 (01:00→04:54)
[2017-01-23 07:27] VITALS: RESP 18; TEMP 97.6
[2017-01-23] MEDS: Pravastatin Sodium 20 MG TAB PO SCH (09:00)
[2017-01-23] MEDS: Naproxen 500 MG TAB PO SCH (09:00)
[2017-01-23 09:15] VITALS: BP 154/82; PULSE 69
[2017-01-23 12:14] LABS: BLOOD UREA NITROGEN 18 mg/dl (7-17); CARBON DIOXIDE 26 mmol/L (22-30); CHLORIDE 101 mmol/L (98-107); GFR AFRICAN-AMERICAN > 60; GLUCOSE,RANDOM 189 mg/dL (65-105); LIPASE 240 U/L (23-300); POTASSIUM 4.1 MMOL/L (3.6-5.0); SODIUM 137 mmol/l (132-148)
--- NOTE | 2017-01-31 08:36 | CP.PCM.DIS ---
Provider - Provider Date of Admission: 01/22/17 14:33 Attending physician: Robe Gallego MD Time Spent in preparation of Discharge (in minutes): 15 Diagnosis - Discharge Diagnosis (1) Dependent for activity Status: Chronic Hospital Course - Lab Results Lab Results: Most Recent Lab Values WBC 7.8 K/uL (4.8-10.8) 01/22/17 13:40 RBC 4.70 Mil/uL (3.80-5.20) 01/22/17 13:40 Hgb 12.9 g/dL (12.0-16.0) 01/22/17 13:40 Hct 39.0 % (34.0-47.0) 01/22/17 13:40 MCV 82.9 fl (81.0-99.0) D 01/22/17 13:40 MCH 27.5 pg (27.0-31.0) 01/22/17 13:40 MCHC 33.2 g/dL (33.0-37.0) 01/22/17 13:40 RDW 14.7 % (11.5-14.5) H 01/22/17 13:40 Plt Count 178 K/uL (130-400) 01/22/17 13:40 MPV 10.7 fl (7.2-11.7) 01/20/17 17:50 Neut % (Auto) 46.0 % (50.0-75.0) L 01/20/17 17:50 Lymph % (Auto) 38.8 % (20.0-40.0) 01/20/17 17:50 [place] % (Auto) 9.9 % (0.0-10.0) 01/20/17 17:50 Eos % (Auto) 4.2 % (0.0-4.0) H 01/20/17 17:50 Baso % (Auto) 1.1 % (0.0-2.0) 01/20/17 17:50 Neut # 3.5 K/uL (1.8-7.0) 01/20/17 17:50 Lymph # 2.9 K/uL (1.0-4.3) 01/20/17 17:50 [place] # 0.7 K/uL (0.0-0.8) 01/20/17 17:50 Eos # 0.3 K/uL (0.0-0.7) 01/20/17 17:50 Baso # 0.1 K/uL (0.0-0.2) 01/20/17 17:50 Sodium 137 mmol/l (132-148) 01/23/17 11:40 Potassium 4.1 MMOL/L (3.6-5.0) 01/23/17 11:40 Chloride 101 mmol/L (98-107) 01/23/17 11:40 Carbon Dioxide 26 mmol/L (22-30) 01/23/17 11:40 Anion Gap 15 (10-20) 01/23/17 11:40 BUN 18 mg/dl (7-17) H 01/23/17 11:40 Creatinine 1.0 mg/dL (0.7-1.2) 01/23/17 11:40 Est GFR ( Amer) > 60 01/23/17 11:40 Est GFR (Non-Af Amer) 59 01/23/17 11:40 POC Glucose (mg/dL) 209 mg/dL (65-110) H 01/23/17 10:57 Random Glucose 189 mg/dL (65-105) H 01/23/17 11:40 Calcium 9.0 mg/dL (8.4-10.2) 01/23/17 11:40 Total Bilirubin 0.2 mg/dl (0.2-1.3) 01/22/17 13:40 AST 14 U/L (14-36) D 01/22/17 13:40 ALT 19 U/L (9-52) 01/22/17 13:40 Alkaline Phosphatase 108 U/L (38-126) 01/22/17 13:40 Total Protein 7.4 G/DL (6.3-8.2) 01/22/17 13:40 Albumin 3.5 g/dL (3.5-5.0) 01/22/17 13:40 Globulin 3.8 gm/dL (2.2-3.9) 01/22/17 13:40 Albumin/Globulin Ratio 0.9 (1.0-2.1) L 01/22/17 13:40 Lipase 240 U/L (23-300) 01/23/17 11:40 - Hospital Course Hospital Course: WAs hospitaliized Because of Family unable to care for her, and being placed ARABELLA to Intermediate. PAtient dependent for Most ADL/IADL. Discharge Exam - Head Exam Head Exam: ATRAUMATIC, NORMAL INSPECTION, NORMOCEPHALIC Discharge Plan - Follow Up Plan Condition: STABLE Disposition: TRANSF TO SNF Instructions: Weakness (GEN), Chronic Back Pain (ED), Epigastric Pain (ED), Back Pain (GEN), Hypertension (DC), Hypertension (GEN) Referrals: Ivana Valverde MD [Family Provider] -
== END 2017-01-23 15:00 | DRG 35 ==
LOC: H.ER 16:45 → H.ERHOLD 01-21 00:12 → H.MEDSURG1 01-21 01:31 → OBSVTOIN 01-22 14:33
PROVIDERS: ADMIT Internal Medicine; ATTEND Internal Medicine
DX: G89.29 Other chronic pain (principal); Z68.41 Body mass index [BMI] 40.0-44.9, adult; I10 Essential (primary) hypertension; I69.392 Facial weakness following cerebral infarction; E10.9 Type 1 diabetes mellitus without complications; E66.01 Morbid (severe) obesity due to excess calories; R11.10 Vomiting, unspecified; R13.10 Dysphagia, unspecified; M19.90 Unspecified osteoarthritis, unspecified site; Z75.1 Person awaiting admission to adequate facility elsewhere; Z74.09 Other reduced mobility; Z74.2 Need for assistance at home and no other household member able to render care; Z99.3 Dependence on wheelchair; Z79.4 Long term (current) use of insulin; Z79.01 Long term (current) use of anticoagulants; Z79.02 Long term (current) use of antithrombotics/antiplatelets; Z87.891 Personal history of nicotine dependence

== ENCOUNTER 2017-02-24 07:51 | Inpatient (IN) | payer MEDICAID ==
[2017-02-24 07:54] VITALS: BMI 51.9
[2017-02-24] MEDS ORDERED: Sodium Chloride 0.9% 500 ML IV STA (08:06)
--- NOTE | 2017-02-24 08:09 | ED PDOC ---
HPI: Chest Pain Time Seen by Provider: 02/24/17 07:57 Chief Complaint (Nursing): Chest Pain Chief Complaint (Provider): Chest pain History Per: Patient History/Exam Limitations: no limitations Onset/Duration Of Symptoms: Days (today) Current Symptoms Are (Timing): Still Present Additional Complaint(s): Pt. with chest pain, left side. Started when she woke up in the morning. No nausea, vomit, dizziness, dyspnea. No headache. Had stroke 4 months with left facial droop and right side weakness. Past Medical History Reviewed: Nursing Documentation, Vital Signs Vital Signs: Last Vital Signs Temp 98.9 F 02/24/17 07:53 Pulse 74 02/24/17 07:53 Resp 16 02/24/17 07:53 BP 132/81 02/24/17 07:53 Pulse Ox 97 02/24/17 11:35 - Medical History PMH: Arthritis, CVA (L facial droop and R extremity weakness), Depression, Diabetes (type I), HTN, Hyperlipidemia Denies: HIV, Chronic Kidney Disease - Surgical History Surgical History: (x4) - Family History Family History: States: Unknown Family Hx - Living Arrangements Living Arrangements: Long-Term/Assist Lvng - Social History Current smoker - smoking cessation education provided: No Alcohol: None Drugs: Denies - Home Medications Home Medications: Ambulatory Orders Medication Instructions Recorded Insulin Lispro [humALOG] 10 unit SC TID 10/04/16 PARoxetine [Paxil] 20 mg PO QAM 10/04/16 Pravastatin Sodium [Pravachol] 20 mg PO DAILY 10/04/16 metFORMIN [glucOPHAGE] 850 mg PO BID 10/04/16 Acetaminophen [Tylenol 325mg tab] 650 mg PO Q4 PRN tab 10/10/16 Apixaban [Eliquis] 5 mg PO BID tab 10/10/16 Insulin Detemir [Levemir] 40 units SC HS vial 10/10/16 Lisinopril [Zestril] 20 mg PO DAILY tab 10/10/16 amLODIPine [Norvasc] 10 mg PO DAILY tab 10/10/16 Cyclobenzaprine [Flexeril] 10 mg PO TID PRN #15 tab 11/23/16 Aspirin [Aspirin Chewable] 81 mg PO DAILY 12/16/16 Atorvastatin [Lipitor] 80 mg PO HS tab 12/16/16 Clopidogrel [Plavix] 75 mg PO DAILY tab 12/16/16 Naproxen 500 mg PO Q12 tab 12/16/16 - Allergies Allergies/Adverse Reactions: Allergies Allergy/AdvReac Type Severity Reaction Status Date / Time No Known Allergies Allergy Unverified 01/28/14 17:46 Review of Systems ROS Statement: Except As Marked, All Systems Reviewed And Found Negative Constitutional: Positive for: Weakness (chronic left face; right extremities) Cardiovascular: Positive for: Chest Pain Neurological: Positive for: Weakness. Negative for: Altered Mental Status, Headache, Dizziness Physical Exam - Reviewed Nursing Documentation Reviewed: Yes Vital Signs Reviewed: Yes - Physical Exam Appears: Positive for: Non-toxic, No Acute Distress Head Exam: Positive for: ATRAUMATIC, NORMAL INSPECTION, NORMOCEPHALIC Skin: Positive for: Normal Color, Warm, DRY Eye Exam: Positive for: EOMI, PERRL ENT: Positive for: Normal ENT Inspection. Negative for: Nasal Congestion, Pharyngeal Erythema, Tonsillar Exudate Neck: Positive for: Normal, Painless ROM, Supple Cardiovascular/Chest: Positive for: Regular Rate, Rhythm Respiratory: Positive for: CNT, Normal Breath Sounds Gastrointestinal/Abdominal: Positive for: Normal Exam, Bowel Sounds, Soft. Negative for: Tenderness Back: Positive for: Normal Inspection. Negative for: L CVA Tenderness, R CVA Tenderness Extremity: Positive for: Other (limited ROM of extremities due to stroke and weakness). Negative for: Tenderness, Pedal Edema Neurologic/Psych: Positive for: Alert, Oriented, Motor/Sensory Deficits (R side 3/5 strength, L side 4/5 strength), Facial Droop (L). Negative for: window draper II-XII (L facial droop), Aphasia - Laboratory Results Result Diagrams: 02/24/17 08:41 02/24/17 08:41 Interpretation Of Abn Labs: 12.9 wbc - ECG ECG: Positive for: Interpreted By Me, Viewed By Me ECG Rhythm: Positive for: Sinus Rhythm, Nonspecific Changes O2 Sat by Pulse Oximetry: 97 Pulse Ox Interpretation: Normal Interpretation Of Abnormal: EKG 2: no acute infarcting pattern - Progress ED Course And Treament: 1135: Pt. with no cough, congestion, dyspnea. Not likely uri/pneumonia based on clinical evaluation. Spoke with Dr. Hinojosa, will admit. Elevated wbc borderline elevation. Will monitor. Dr. Hinojosa to give further orders when pt. reaches floor. Pain free currently. AAOx3. Disposition - Clinical Impression Clinical Impression: Chest pain - Patient ED Disposition Is Patient to be Admitted: No Counseled Patient/Family Regarding: Studies Performed, Diagnosis - Disposition Disposition Time: 11:36 Condition: FAIR - Pt Status Changed To: Hospital Disposition Of: Observation - POA Present On Arrival: None Core Measure Indicators: Chest Pain
[2017-02-24 08:48] LABS: BASO # 0.1 K/uL (0.0-0.2); BASO % 0.9 % (0.0-2.0); EOS # 0.6 K/uL (0.0-0.7); EOS % 4.9 % (0.0-4.0); HEMATOCRIT 35.7 % (34.0-47.0); LYMPH % 23.3 % (20.0-40.0); MEAN CELL VOLUME 81.8 fl (81.0-99.0); MEAN CORPUSCULAR HEMOGLOBIN 26.1 pg (27.0-31.0); MEAN CORPUSCULAR HGB CONC 31.9 g/dL (33.0-37.0); MEAN PLATELET VOLUME 8.8 fl (7.2-11.7); MONO % 7.7 % (0.0-10.0); NEUT # 8.1 K/uL (1.8-7.0); NEUT % 63.2 % (50.0-75.0); RED CELL DISTRIBUTION WIDTH 14.8 % (11.5-14.5); WHITE BLOOD COUNT 12.9 K/uL (4.8-10.8)
[2017-02-24 08:53] LABS: ALKALINE PHOSPHATASE 78 U/L (38-126); ALT/SGPT 23 U/L (9-52); AST/SGOT 11 U/L (14-36); BILIRUBIN,TOTAL 0.3 mg/dl (0.2-1.3); BLOOD UREA NITROGEN 18 mg/dl (7-17); CALCIUM 8.7 mg/dL (8.4-10.2); CARBON DIOXIDE 25 mmol/L (22-30); CHLORIDE 107 mmol/L (98-107); GFR AFRICAN-AMERICAN > 60; GLUCOSE,RANDOM 107 mg/dL (65-105); POTASSIUM 4.1 MMOL/L (3.6-5.0); SODIUM 139 mmol/l (132-148); TOTAL PROTEIN 7.3 G/DL (6.3-8.2)
[2017-02-24 09:27] LABS: PARTIAL THROMBOPLASTIN TIME 35.8 Seconds (25.6-37.1)
--- NOTE | 2017-02-24 10:44 | RAD ---
HISTORY: chest pain COMPARISON: Comparison made with prior study 09/11/2012 FINDINGS: LUNGS: Poor inspiration with low lung volumes, crowded bronchovascular markings and mild bibasilar atelectasis. Central pulmonary vasculature is also slightly increased up possibly due to on low lung volumes as well however developing mild pulmonary edema should be excluded followup radiographs. PLEURA: No significant pleural effusion identified, no pneumothorax apparent. CARDIOVASCULAR: Heart remains enlarged. Aorta is ectatic and uncoiled. OSSEOUS STRUCTURES: No significant abnormalities. VISUALIZED UPPER ABDOMEN: Normal. OTHER FINDINGS: None. IMPRESSION: Poor inspiration with low lung volumes, crowded bronchovascular markings and mild bibasilar atelectasis. Central pulmonary vasculature is also slightly increased up possibly due to on low lung volumes as well however developing mild pulmonary edema should be excluded followup radiographs.
[2017-02-24] MEDS: Insulin Lispro (humaLOG) 100 Units/ml Inj SC SCH (17:00)
--- NOTE | 2017-02-24 18:05 | CARD ---
APPROVED REPORT EKG Measurement Heart [id number] <Conclusion> Normal sinus rhythm Minimal voltage criteria for LVH, may be normal variant Borderline ECG
--- NOTE | 2017-02-24 18:08 | CARD ---
APPROVED REPORT EKG Measurement Heart [id number] [id number] <Conclusion> Sinus Rhythm Minimal voltage criteria for LVH, may be normal variant T wave abnormality, consider inferior ischemia vs artifacts Abnormal ECG
[2017-02-24] MEDS ORDERED: Naproxen 500 MG TAB PO ONE (21:01)
[2017-02-24] MEDS: Naproxen 500 MG TAB PO SCH (21:05)
[2017-02-25] MEDS: Insulin Lispro (humaLOG) 100 Units/ml Inj SC SCH ×2 (08:22→16:50)
[2017-02-25] MEDS: Naproxen 500 MG TAB PO SCH ×2 (08:25→21:19)
--- NOTE | 2017-02-25 09:55 | CP.PCM.HP ---
Past Patient History - Infectious Disease Hx of Infectious Diseases: None - Past Medical History & Family History Past Medical History?: Yes - Past Social History Smoking Status: Former Smoker - CARDIAC Hx Cardiac Disorders: Yes Hx Hypercholesterolemia: Yes Hx Hypertension: Yes - PULMONARY Hx Respiratory Disorders: No - NEUROLOGICAL Hx Neurological Disorder: Yes HX Cerebrovascular Accident: Yes - HEENT Hx HEENT Problems: No - RENAL Hx Chronic Kidney Disease: No - ENDOCRINE/METABOLIC Hx Diabetes Mellitus Type 2: Yes Hx Systemic Lupus Erythematosus: Yes - HEMATOLOGICAL/ONCOLOGICAL Hx Human Immunodeficiency Virus (HIV): No - INTEGUMENTARY Hx Dermatological Problems: No - MUSCULOSKELETAL/RHEUMATOLOGICAL Hx Arthritis: Yes Hx Falls: Yes - GASTROINTESTINAL Hx Gastrointestinal Disorders: No - GENITOURINARY/GYNECOLOGICAL Hx Genitourinary Disorders: No - PSYCHIATRIC Hx Depression: Yes Hx Substance Use: No - SURGICAL HISTORY Hx Section: Yes Hx Tubal Ligation: Yes - ANESTHESIA Hx Anesthesia: Yes Hx Anesthesia Reactions: No Hx Malignant Hyperthermia: No Meds Allergies/Adverse Reactions: Allergies Allergy/AdvReac Type Severity Reaction Status Date / Time No Known Allergies Allergy Unverified 01/28/14 17:46 Results - Vital Signs Recent Vital Signs: Last Vital Signs Temp 97.8 F 02/25/17 08:03 Pulse 65 02/25/17 08:27 Resp 20 02/25/17 08:03 BP 142/90 02/25/17 08:27 Pulse Ox 96 02/25/17 08:03 - Labs Result Diagrams: 02/24/17 08:41 02/24/17 08:41 Labs: Laboratory Results - last 24 hr 02/24/17 02/24/17 02/24/17 10:33 17:23 17:32 POC Glucose (mg/dL) 181 H Troponin I < 0.0120 NT-Pro-B Natriuret Pep 159 02/24/17 02/25/17 02/25/17 23:01 01:00 06:00 POC Glucose (mg/dL) 132 H 101 Troponin I < 0.0120 NT-Pro-B Natriuret Pep
--- NOTE | 2017-02-26 00:44 | CON ---
CARDIOLOGY CONSULTATION CONSULT DATE: REASON FOR CONSULTATION: Chest pain. HISTORY OF PRESENT ILLNESS: The patient is a 51-year-old female, assisted resident for the past 2 months at [facility] with history of 3 strokes according to the patient, the most recent one left her with residual left-sided weakness. The patient was admitted because of chest pain, which she describes as heaviness. The patient denies any history of shortness of breath. The patient is not aware of any history of heart attack in the past. SOCIAL HISTORY: Nonsmoker. She has 2 sons, and she is currently in a assisted in [place]. MEDICATIONS: Aspirin 81 mg once a day, Eliquis 5 mg twice a day, metformin 850 mg twice a day, Flexeril 10 mg t.i.d., Lipitor 80 mg once a day, Naproxen 500 mg twice a day, Norvasc 10 mg once a day, Paxil 20 mg once a day, Zestril 20 mg once a day. REVIEW OF SYSTEMS: The patient has a history of depression, but she denies any suicidal thoughts at this time. She denies any nausea or vomiting. She denies any fever or chills. PHYSICAL EXAMINATION: GENERAL: The patient is a middle-aged female, who does not appear to be in any acute distress. VITAL SIGNS: Blood pressure 143/79, heart rate 86, temperature 98.6, respirations 18. HEENT: Left facial drooping. NECK: No JVD. CHEST: Clear. HEART: S1 and S2 regular. ABDOMEN: Soft. EXTREMITIES: No edema. LABORATORY DATA: CBC: WBC 12.9, hemoglobin 11.4, hematocrit 35.7, platelet count 246,000. SMA-7 is within normal limits except for glucose of 107 and BUN of 18. Three sets of troponins are negative. ProBNP is within normal limit. EKG revealed sinus rhythm, minimum voltage criteria for LVH. Echocardiography study performed in 11/2016 revealed moderate concentric LVH with normal ejection fraction and grade I abnormal relaxation pattern. Most recent brain MRI in 11/2016, revealed acute right mid cerebellar artery territory infarct involving the posterolateral temporal lobe. Old infarcts in the right mid cerebellar and posterior cerebellar arteries territory. Left posterior intracerebral artery territory and right basal ganglia. Severe chronic microangiopathic changes and moderate age-related global parenchymal volume loss. EKG during this admission revealed normal sinus rhythm with moderate voltage criteria for LVH. There is of all EKGs listed on the patient's [facility] database, they all revealed sinus rhythm. ASSESSMENT: 1. Chest pain, myocardial infarction ruled out. 2. History of recent cerebrovascular accident with multiple old strokes. 3. Questionable history of atrial fibrillation. RECOMMENDATIONS: Continue current Eliquis 5 mg twice a day, aspirin 81 mg once a day, Lipitor 80 mg once a day, Norvasc 10 mg once a day. Start Coreg 3.125 mg twice a day. Cardiac consultation was presented to the patient; however, she declined my recommendations and case will be discussed with Dr. Gallego. Kenny Bernal MD
[2017-02-26] MEDS: Insulin Lispro (humaLOG) 100 Units/ml Inj SC SCH ×2 (08:24→16:44)
[2017-02-26] MEDS: Naproxen 500 MG TAB PO SCH ×2 (08:25→21:23)
--- NOTE | 2017-02-26 18:06 | PN ---
DATE: SUBJECTIVE: The patient denies any chest pain. PHYSICAL EXAMINATION: VITAL SIGNS: Blood pressure 138/76, heart rate 63, temperature 97.7, respirations 20. HEENT: flattened nasolabial fold. NECK: No JVD. CHEST: Clear. HEART: S1 and S2, regular. EXTREMITIES: No edema. ASSESSMENT: 1. Chest pain, myocardial infarction is ruled out. 2. History of multiple strokes. 3. History of systemic lupus erythematosus. RECOMMENDATIONS: Continue current aspirin, Coreg, metformin, Lipitor, Norvasc, and Zestril. Discontinue Eliquis. The patient agrees for cardiac catheterization, which will be booked at [facility]. Kenny Bernal MD
--- NOTE | 2017-02-26 23:08 | CP.PCM.PN ---
Subjective - Date & Time of Evaluation Date of Evaluation: 02/26/17 Time of Evaluation: 11:30 Objective - Vital Signs/Intake and Output Vital Signs (last 24 hours): Temp Pulse Resp BP Pulse Ox 99.4 F 80 20 135/80 96 02/26/17 20:27 02/26/17 21:23 02/26/17 20:27 02/26/17 21:23 02/26/17 20:27 Intake and Output: 02/26/17 02/27/17 18:59 06:59 Intake Total 1200 Balance 1200 - Medications Medications: Current Medications Acetaminophen (Tylenol 325mg Tab) 650 mg PO Q4 PRN PRN Reason: Headache Last Admin: 02/26/17 00:39 Dose: 650 mg Amlodipine Besylate (Norvasc) 10 mg PO DAILY [facility] Last Admin: 02/26/17 08:25 Dose: 10 mg Aspirin (Aspirin Chewable) 81 mg PO DAILY [facility] Last Admin: 02/26/17 08:21 Dose: 81 mg Atorvastatin Calcium (Lipitor) 80 mg PO HS [facility] Last Admin: 02/26/17 21:23 Dose: 80 mg Carvedilol (Coreg) 3.125 mg PO Q12 [facility] Last Admin: 02/26/17 21:23 Dose: 3.125 mg Cyclobenzaprine HCl (Flexeril) 10 mg PO TID PRN PRN Reason: Pain Insulin Human Lispro (Humalog) 0 units SC BID [facility] PRN Reason: Protocol Last Admin: 02/26/17 16:44 Dose: Not Given Lisinopril (Zestril) 20 mg PO DAILY [facility] Last Admin: 02/26/17 08:26 Dose: 20 mg Metformin HCl (Glucophage) 850 mg PO BID [facility] Last Admin: 02/26/17 16:41 Dose: 850 mg Naproxen (Naproxen) 500 mg PO Q12 [facility] Last Admin: 02/26/17 21:23 Dose: 500 mg Paroxetine HCl (Paxil) 20 mg PO QAM [facility] Last Admin: 02/26/17 08:26 Dose: 20 mg - Labs Labs: 02/24/17 08:41 02/24/17 08:41 PT 16.6 Seconds (9.8-13.1) H 02/24/17 08:41 INR 1.5 (0.9-1.2) H 02/24/17 08:41 APTT 35.8 Seconds (25.6-37.1) 02/24/17 08:41
[2017-02-27] MEDS: Insulin Lispro (humaLOG) 100 Units/ml Inj SC SCH ×2 (08:42→21:51)
[2017-02-27] MEDS: Naproxen 500 MG TAB PO SCH ×2 (08:43→21:41)
[2017-02-28] MEDS: Naproxen 500 MG TAB PO SCH ×2 (08:06→22:52)
[2017-02-28] MEDS: Insulin Lispro (humaLOG) 100 Units/ml Inj SC SCH (22:51)
--- NOTE | 2017-02-28 23:55 | CP.PCM.PN ---
Subjective - Date & Time of Evaluation Date of Evaluation: 02/27/17 Time of Evaluation: 23:45 Objective - Vital Signs/Intake and Output Vital Signs (last 24 hours): Temp Pulse Resp BP Pulse Ox 97.3 F L 71 20 128/88 97 02/28/17 22:42 02/28/17 22:50 02/28/17 22:42 02/28/17 22:50 02/28/17 22:42 - Medications Medications: Current Medications Acetaminophen (Tylenol 325mg Tab) 650 mg PO Q4 PRN PRN Reason: Headache Last Admin: 02/26/17 00:39 Dose: 650 mg Amlodipine Besylate (Norvasc) 10 mg PO DAILY [facility] Last Admin: 02/28/17 08:07 Dose: 10 mg Aspirin (Aspirin Chewable) 81 mg PO DAILY [facility] Last Admin: 02/28/17 08:06 Dose: 81 mg Atorvastatin Calcium (Lipitor) 80 mg PO HS [facility] Last Admin: 02/28/17 22:50 Dose: 80 mg Carvedilol (Coreg) 3.125 mg PO Q12 [facility] Last Admin: 02/28/17 22:50 Dose: 3.125 mg Cyclobenzaprine HCl (Flexeril) 10 mg PO TID PRN PRN Reason: Pain Insulin Human Lispro (Humalog) 0 units SC BID [facility] PRN Reason: Protocol Last Admin: 02/28/17 22:51 Dose: 1 unit Lisinopril (Zestril) 20 mg PO DAILY [facility] Last Admin: 02/28/17 08:07 Dose: 20 mg Metformin HCl (Glucophage) 850 mg PO BID [facility] Last Admin: 02/28/17 22:50 Dose: 850 mg Naproxen (Naproxen) 500 mg PO Q12 [facility] Last Admin: 02/28/17 22:52 Dose: 500 mg Paroxetine HCl (Paxil) 20 mg PO QAM [facility] Last Admin: 02/28/17 08:07 Dose: Not Given - Labs Labs: 02/24/17 08:41 02/24/17 08:41 PT 16.6 Seconds (9.8-13.1) H 02/24/17 08:41 INR 1.5 (0.9-1.2) H 02/24/17 08:41 APTT 35.8 Seconds (25.6-37.1) 02/24/17 08:41
--- NOTE | 2017-02-28 23:56 | CP.PCM.PN ---
Subjective - Date & Time of Evaluation Date of Evaluation: 02/28/17 Time of Evaluation: 23:35 Objective - Vital Signs/Intake and Output Vital Signs (last 24 hours): Temp Pulse Resp BP Pulse Ox 97.3 F L 71 20 128/88 97 02/28/17 22:42 02/28/17 22:50 02/28/17 22:42 02/28/17 22:50 02/28/17 22:42 - Medications Medications: Current Medications Acetaminophen (Tylenol 325mg Tab) 650 mg PO Q4 PRN PRN Reason: Headache Last Admin: 02/26/17 00:39 Dose: 650 mg Amlodipine Besylate (Norvasc) 10 mg PO DAILY [facility] Last Admin: 02/28/17 08:07 Dose: 10 mg Aspirin (Aspirin Chewable) 81 mg PO DAILY [facility] Last Admin: 02/28/17 08:06 Dose: 81 mg Atorvastatin Calcium (Lipitor) 80 mg PO HS [facility] Last Admin: 02/28/17 22:50 Dose: 80 mg Carvedilol (Coreg) 3.125 mg PO Q12 [facility] Last Admin: 02/28/17 22:50 Dose: 3.125 mg Cyclobenzaprine HCl (Flexeril) 10 mg PO TID PRN PRN Reason: Pain Insulin Human Lispro (Humalog) 0 units SC BID [facility] PRN Reason: Protocol Last Admin: 02/28/17 22:51 Dose: 1 unit Lisinopril (Zestril) 20 mg PO DAILY [facility] Last Admin: 02/28/17 08:07 Dose: 20 mg Metformin HCl (Glucophage) 850 mg PO BID [facility] Last Admin: 02/28/17 22:50 Dose: 850 mg Naproxen (Naproxen) 500 mg PO Q12 [facility] Last Admin: 02/28/17 22:52 Dose: 500 mg Paroxetine HCl (Paxil) 20 mg PO QAM [facility] Last Admin: 02/28/17 08:07 Dose: Not Given - Labs Labs: 02/24/17 08:41 02/24/17 08:41 PT 16.6 Seconds (9.8-13.1) H 02/24/17 08:41 INR 1.5 (0.9-1.2) H 02/24/17 08:41 APTT 35.8 Seconds (25.6-37.1) 02/24/17 08:41
[2017-03-01 06:17] LABS: BASO # 0.1 K/uL (0.0-0.2); BASO % 0.7 % (0.0-2.0); EOS # 0.4 K/uL (0.0-0.7); EOS % 3.8 % (0.0-4.0); HEMATOCRIT 34.3 % (34.0-47.0); LYMPH # 0.9 K/uL (1.0-4.3); LYMPH % 8.8 % (20.0-40.0); MEAN CELL VOLUME 79.8 fl (81.0-99.0); MEAN CORPUSCULAR HEMOGLOBIN 27.2 pg (27.0-31.0); MEAN CORPUSCULAR HGB CONC 34.1 g/dL (33.0-37.0); MONO # 0.8 K/uL (0.0-0.8); MONO % 8.5 % (0.0-10.0); NEUT # 7.8 K/uL (1.8-7.0); NEUT % 78.2 % (50.0-75.0); PLATELET COUNT 258 K/uL (130-400); RED CELL DISTRIBUTION WIDTH 14.7 % (11.5-14.5)
[2017-03-01 06:18] LABS: POTASSIUM 4.2 MMOL/L (3.6-5.0)
[2017-03-01 06:22] LABS: ALB/GLOB RATIO 1.1 (1.0-2.1); BILIRUBIN,TOTAL 0.4 mg/dl (0.2-1.3); CALCIUM 9.1 mg/dL (8.4-10.2); TOTAL PROTEIN 7.1 G/DL (6.3-8.2)
[2017-03-01] MEDS: Naproxen 500 MG TAB PO SCH (08:59)
[2017-03-01] MEDS: Insulin Lispro (humaLOG) 100 Units/ml Inj SC SCH ×2 (09:07→18:18)
--- NOTE | 2017-03-01 10:24 | PQF GENQUE ---
This form is a permanent part of the medical record 03/01/17 Dr. Bernal, Please provide the underlying diagnosis causing the patient's documented symptom. Patient admitted with CHEST PAIN (symptom) Patient admitted with chest heaviness. EKG: Minimal voltage criteria for LVH may be normal variant. T wave abnormality consider inferior ischemia versus artifact. Troponin x 3 negative. Cardiac Catheterization performed at [facility] with two vessel CAD. Clarification of your documentation is requested to better reflect the severity of illness and intensity of treatment of your patient. Indicators present [] Specify: [] [] Specify: [] [] Specify: [] [] Specify: [] Location in the medical record that reflects the above clinical findings: [] Treatment Provided: [] PHYSICIAN'S RESPONSE Based on your medical judgment of the clinical indicators outlined above please clarify the following: [] Practitioner response [] If unable to determine, please check the box, sign and date. Present On Admission (POA) Indicator: [] Present at the time of admission [] Not present at the time of admission [] Clinically Undetermined In responding to this query, please exercise your independent professional judgment. The fact that a question is asked does not imply that any particular answer is desired or expected. Thank you for your clarification on this documentation. If you have any questions please call:extension [phone] * Thank you, Celia Feliz RN CD[facility]
[2017-03-01 12:09] LABS: EOSINOPHIL 5 % (0-7); NEUTROPHIL 82 % (42-75); TOTAL CELLS COUNTED 100
[2017-03-01 15:50] VITALS: PULSE 86; RESP 20; O2SAT 96
[2017-03-01 16:06] VITALS: BP 133/87; TEMP 98
[2017-03-01] MEDS ORDERED: Acetylcysteine 20% Inhal Soln (4ml) PO SCH (17:15)
[2017-03-01] MEDS ORDERED: Sodium Chloride 0.45% 1,000 ML IV SCH (17:30)
--- NOTE | 2017-03-01 21:27 | PN ---
DATE: SUBJECTIVE: The patient denies any chest pain, groin pain, or left leg pain. PHYSICAL EXAMINATION: VITAL SIGNS: Blood pressure 133/87, heart rate 86, temperature 98, and respirations 20. HEENT: Normocephalic. CHEST: Clear. HEART: S1 and S2 regular. EXTREMITIES: No hematoma. No edema. With adequate distal pulses. LABORATORY DATA: SMA-7: Sodium 142, potassium 4.2, chloride 107, CO2 of 24, glucose 129, BUN 24, and creatinine 1.4. Today's hemoglobin and hematocrit is 11.7 and 34.3, white count and platelet count are within normal limits. ASSESSMENT: 1. Coronary artery disease status post percutaneous coronary intervention to the mid left anterior descending artery with drug-eluting stent yesterday. 2. History of multiple strokes. 3. Mild renal insufficiency. Consider contrast nephropathy. 4. Diabetes mellitus. RECOMMENDATIONS: Continue aspirin 81 mg once a day, Coreg at 3.125 mg twice a day, Lipitor 80 mg once a day, Norvasc 10 mg once a day, Plavix 75 mg once a day, and Zestril 20 mg once a day. Start Mucomyst at 600 mg twice a day and half normal saline at 60 mL an hour. Obtain a followup BMP in a.m.. Kenny Bernal MD
== END 2017-03-01 18:45 | DRG 125 ==
LOC: H.ER 07:51 → H.ERHOLD 11:28 → H.TEL 22:27 → OBSVTOIN 02-25 10:18
PROVIDERS: ADMIT Internal Medicine; ATTEND Internal Medicine
PROC: 4A023N8 Measurement of Cardiac Sampling and Pressure, Bilateral, Percutaneous Approach (ICD-10-PCS; principal; 2017-02-28)
PROC: B206YZZ Plain Radiography of Right and Left Heart using Other Contrast (ICD-10-PCS; 2017-02-28)
DX: I25.10 Atherosclerotic heart disease of native coronary artery without angina pectoris (principal); M32.9 Systemic lupus erythematosus, unspecified; I69.351 Hemiplegia and hemiparesis following cerebral infarction affecting right dominant side; I10 Essential (primary) hypertension; E10.9 Type 1 diabetes mellitus without complications; E78.5 Hyperlipidemia, unspecified; I69.392 Facial weakness following cerebral infarction; Z98.61 Coronary angioplasty status; N28.9 Disorder of kidney and ureter, unspecified; Z79.01 Long term (current) use of anticoagulants; Z79.02 Long term (current) use of antithrombotics/antiplatelets; Z79.4 Long term (current) use of insulin; Z87.891 Personal history of nicotine dependence